=== PATIENT | female | born 1935 | race Caucasian/White ===

== ENCOUNTER 2016-12-18 13:35 | Emergency (ER) | payer MEDICARE, OTHER ==
[2016-12-18] MEDS ORDERED: Aspirin 81 MG Tab.Chew PO ONE (13:42)
[2016-12-18] MEDS ORDERED: Sodium Chloride 0.9% 10 ML Syringe FLUSH PRN (13:43)
--- NOTE | 2016-12-18 13:58 | EDM.PDOC ---
ED HPI GENERAL MEDICAL PROBLEM - General Chief Complaint: Chest Pain Stated Complaint: CHEST PAIN Time Seen by Provider: 12/18/16 13:40 Source of Information: Reports: Patient, Family, RN, RN Notes Reviewed History Limitations: Reports: No Limitations - History of Present Illness INITIAL COMMENTS - FREE TEXT/NARRATIVE: Patient presents to the emergency room at [facility] complaining of substernal chest pain. The patient states the pain is centered around the xiphoid process. The patient states the pain began one hour ago after she ate a very large meal. The patient denies any shortness of breath. No diaphoresis. No radiation of the pain. The patient states her only cardiac history is atrial fibrillation in the past. The patient denies any focal neurological deficits. The patient denies any dizziness, no headache. The patient denies any nausea or vomiting. Patient denies any back pain. The patient is not sure if her pain was caused from indigestion versus true cardiac pain. Onset: Today Onset Date: 12/18/16 Onset Time: 12:30 Duration: Waxing/Waning Location: Reports: Chest Quality: Reports: Burning, Pressure Severity: Mild Treatments METERMAN: Reports: Other (see below) (none) Chest Pain Pain Score (Numeric/FACES): 7 - Related Data Allergies Allergy/AdvReac Type Severity Reaction Status Date / Time soy Allergy Nausea Verified 07/09/14 16:35 Home Meds: Home Meds Levothyroxine Sodium [Levothyroxine Sodium] 1 caplet PO DAILY 07/09/14 [History] Social & Family History - Tobacco Use Smoking Status *Q: Never Smoker - Alcohol Use Days Per Week of Alcohol Use: 0 - Recreational Drug Use Recreational Drug Use: No ED ROS GENERAL - Review of Systems Review Of Systems: See Below Constitutional: Denies: Fever, Chills, Weakness Respiratory: Denies: Shortness of Breath, Cough Cardiovascular: Reports: Chest Pain. Denies: Dyspnea on Exertion, Lightheadedness, Palpitations ED EXAM, GENERAL - Physical Exam Exam: See Below Exam Limited By: No Limitations General Appearance: Alert, No Apparent Distress Respiratory/Chest: No Respiratory Distress, Lungs Clear, Normal Breath Sounds Cardiovascular: Normal Peripheral Pulses, No Edema, Bradycardia, Systolic Murmur Peripheral Pulses: 2+: Radial (L), Radial (R) GI/Abdominal: Normal Bowel Sounds, Soft, Non-Tender Extremities: Normal Inspection Neurological: Alert, Oriented Skin Exam: Warm, Dry, Intact, Normal Color, No Rash EKG INTERPRETATION EKG Date: 12/18/16 Time: 13:36 Rhythm: NSR Rate (beats/min): 55 [place]: normal P-wave: present QRS: normal ST-T: normal QT: normal LA/PQ Interval: 0.21 Comparison: NA - no prior EKG EKG Interpretation Comments: 1. Sinus Bradycardia with 1st degree AVB 2. Nonspecific ST & T-wave abnormality Course - Vital Signs Last Recorded V/S: Last Vital Signs Temp 35.9 C 12/18/16 13:35 Pulse 50 L 12/18/16 13:59 Resp 16 12/18/16 13:59 BP 151/58 H 12/18/16 13:59 Pulse Ox 93 L 12/18/16 13:59 - Orders/Labs/Meds Orders: Active Orders 24 hr Category Date Time Status EKG 12 Lead [EKG Documentation Completion] [RC] STAT Care 12/18/16 13:40 Active Chest 2V [CR] Stat Exams 12/18/16 13:43 Taken Sodium Chloride 0.9% [Saline Flush] Med 12/18/16 13:43 Active 10 ml FLUSH ASDIRECTED PRN Peripheral IV Insertion Adult [OM.PC] Routine Oth 12/18/16 13:43 Ordered Medication Orders Sodium Chloride (Saline Flush) 10 ml FLUSH ASDIRECTED PRN PRN Reason: Keep Vein Open Labs: Laboratory Tests 12/18/16 12/18/16 12/18/16 Range/Units 13:50 13:50 14:10 WBC 7.0 (4.0-10.0) x10^3/uL RBC 4.10 (4.00-5.50) x10^6/uL Hgb 12.8 (12.0-16.0) g/dL Hct 38.0 (33.0-47.0) % MCV 92.7 (78.0-93.0) fL MCH 31.2 (26.0-32.0) pg MCHC 33.7 (32.0-36.0) g/dL RDW Coeff of Dione 12.8 (10.0-15.0) % Plt Count 262 (130-400) x10^3/uL Neut % (Auto) 67.0 (50.0-80.0) % Lymph % (Auto) 24.0 L (25.0-50.0) % [place] % (Auto) 7.3 (2.0-11.0) % Eos % (Auto) 1.3 (0.0-4.0) % Baso % (Auto) 0.4 (0.2-1.2) % Sodium 140 (136-145) mmol/L Potassium 4.1 (3.5-5.1) mmol/L Chloride 104 (98-107) mmol/L Carbon Dioxide 28 (21-32) mmol/L BUN 11 (7-18) mg/dL Creatinine 1.0 (0.55-1.02) mg/dL Est Cr Clr Drug Dosing 32.23 mL/min Estimated GFR (MDRD) 53 Glucose 194 H (74-106) mg/dL Calcium 8.5 (8.5-10.1) mg/dL Corrected Calcium 8.82 (8.5-10.1) mg/dL Total Bilirubin 0.5 (0.2-1.0) mg/dL AST 22 (15-37) U/L ALT 26 (14-59) U/L Alkaline Phosphatase 60 (46-116) U/L Creatine Kinase 151 (26-192) U/L Creatine Kinase Index 1.6 (0.0-4.0) % CK-MB (CK-2) 2.4 (0.0-3.6) ng/mL POC Troponin I 0.00 (0.00-0.08) ng/mL Total Protein 6.7 (6.4-8.2) g/dL Albumin 3.6 (3.4-5.0) g/dL Globulin 3.1 Albumin/Globulin Ratio 1.16 Meds: Medications Generic Name Dose Route Start Last Admin Trade Name Freq PRN Reason Stop Dose Admin Sodium Chloride 10 ml 12/18/16 13:43 Saline Flush FLUSH ASDIRECTED PRN Keep Vein Open Discontinued Medications Generic Name Dose Route Start Last Admin Trade Name Freq PRN Reason Stop Dose Admin Aspirin 324 mg 12/18/16 13:42 12/18/16 13:42 Aspirin PO 12/18/16 13:43 324 mg ONETIME ONE Administration - Radiology Interpretation Free Text/Narrative:: CXR: No acute cardiopulmonary process See scanned document in EMR Departure - Departure Time of Disposition: 14:48 Disposition: Home, Self-Care 01 Condition: good Clinical Impression: Acid reflux Qualifiers: Esophagitis presence: with esophagitis Qualified Code(s): K21.0 - Gastro- esophageal reflux disease with esophagitis Instructions: Nonspecific Chest Pain, [id number], Indigestion Referrals: Susan Ford MD [Primary Care Provider] - Forms: ED Department Discharge Care Plan Goals: 1. Stay well hydrated and rest 2. May try over the counter acid reflux medications if symptoms persist 3. All heart testing was normal 4. See your Primary as symptoms warrant - Problem List Review Problem List Initiated/Reviewed/Updated: Yes - My Orders Last 24 Hours: My Active Orders 12/18/16 13:40 EKG 12 Lead [EKG Documentation Completion] [RC] STAT 12/18/16 13:43 Chest 2V [CR] Stat Sodium Chloride 0.9% [Saline Flush] 10 ml FLUSH ASDIRECTED PRN Peripheral IV Insertion Adult [OM.PC] Routine - Assessment/Plan Last 24 Hours: My Active Orders 12/18/16 13:40 EKG 12 Lead [EKG Documentation Completion] [RC] STAT 12/18/16 13:43 Chest 2V [CR] Stat Sodium Chloride 0.9% [Saline Flush] 10 ml FLUSH ASDIRECTED PRN Peripheral IV Insertion Adult [OM.PC] Routine
[2016-12-18 14:58] VITALS: BP 145/78
== END 2016-12-18 14:58 | disposition home or self-care (01) ==
LOC: VM.ED 13:35
DX: K21.0 Gastro-esophageal reflux disease with esophagitis (principal); Z91.018 Allergy to other foods; Z79.899 Other long term (current) drug therapy
CPT/HCPCS: 36415; 71020; 80053; 82550; 82553; 84484; 85025; 93005; 99285; A9270; 99283-GF

== ENCOUNTER 2017-08-24 10:46 | Emergency (ER) | payer MEDICARE, OTHER ==
[2017-08-24 11:28] VITALS: BP 165/64
--- NOTE | 2017-08-25 02:09 | EDM.PDOC ---
ED HPI GENERAL MEDICAL PROBLEM - General Chief Complaint: Gastrointestinal Problem Stated Complaint: TROUBLES PASSING BOWEL Time Seen by Provider: 08/24/17 10:46 Source of Information: Reports: Patient History Limitations: Reports: No Limitations - History of Present Illness INITIAL COMMENTS - FREE TEXT/NARRATIVE: Pt. complains of inablity to have a bowel movement. Pt. states that her last BM was approx. 72 hours ago. Pt. states that she is passing gas and can feel her bowels moving. She denies any fever or chills. No blood in her stools. Onset: Today Duration: Getting Worse Location: Reports: Abdomen Severity: Moderate - Related Data Allergies Allergy/AdvReac Type Severity Reaction Status Date / Time soy Allergy Nausea Verified 08/24/17 11:00 Home Meds: Home Meds Levothyroxine Sodium [Levothyroxine Sodium] 1 caplet PO DAILY 07/09/14 [History] Past Medical History HEENT History: Reports: Cataract Cardiovascular History: Reports: Afib Other Cardiovascular History: hx of afib Gastrointestinal History: Reports: Chronic Constipation Musculoskeletal History: Reports: RA Neurological History: Reports: Concussion Other Psychiatric History: forgetful @ times Endocrine/Metabolic History: Reports: Diabetes, Type II, Hypothyroidism - Past Surgical History GI Surgical History: Reports: Appendectomy, Cholecystectomy, Colonoscopy Social & Family History - Family History Family Medical History: Noncontributory - Tobacco Use Smoking Status *Q: Never Smoker Second Hand Smoke Exposure: No - Caffeine Use Caffeine Use: Reports: Coffee, Soda - Alcohol Use Days Per Week of Alcohol Use: 0 - Recreational Drug Use Recreational Drug Use: No ED ROS GENERAL - Review of Systems Review Of Systems: See Below Constitutional: Reports: No Symptoms HEENT: Reports: No Symptoms Respiratory: Reports: No Symptoms Cardiovascular: Reports: No Symptoms Endocrine: Reports: No Symptoms GI/Abdominal: Reports: Abdominal Pain, Constipation (No BM for 3 days) : Reports: No Symptoms Musculoskeletal: Reports: No Symptoms Skin: Reports: No Symptoms Neurological: Reports: No Symptoms Psychiatric: Reports: No Symptoms Hematologic/Lymphatic: Reports: No Symptoms Immunologic: Reports: No Symptoms ED EXAM, GI/ABD - Physical Exam Exam: See Below Exam Limited By: No Limitations General Appearance: Alert, WD/WN, No Apparent Distress Eyes: Bilateral: Normal Appearance, EOMI Throat/Mouth: Normal Inspection, Normal Lips, Normal Teeth, Normal Gums, Normal Oropharynx, Normal Voice, No Airway Compromise Respiratory/Chest: No Respiratory Distress, Lungs Clear, Normal Breath Sounds, No Accessory Muscle Use, Chest Non-Tender Cardiovascular: Normal Peripheral Pulses, Regular Rate, Rhythm, No Edema, No Gallop, No JVD, No Murmur, No Rub GI/Abdominal Exam: Normal Bowel Sounds, Soft, Non-Tender, No Organomegaly, No Distention, No Abnormal Bruit, No Mass, Pelvis Stable Back Exam: Normal Inspection, Full Range of Motion, NT Extremities: Normal Inspection, Normal Range of Motion, Non-Tender, Normal Capillary Refill, No Pedal Edema Neurological: Alert, Oriented, CN II-XII Intact, Normal Cognition, Normal Gait, Normal Reflexes, No Motor/Sensory Deficits Course - Vital Signs Last Recorded V/S: Last Vital Signs Temp 35.6 C 08/24/17 10:50 Pulse 66 08/24/17 10:50 Resp 18 08/24/17 10:50 BP 165/64 H 08/24/17 11:10 Pulse Ox 97 08/24/17 10:50 - Orders/Labs/Meds Orders: Active Orders 24 hr Category Date Time Status Enema [RC] ASDIRECTED Care 08/24/17 10:55 Active - Re-Assessments/Exams Free Text/Narrative Re-Assessment/Exam: 08/25/17 02:10 Pt. was given a Fleets enema with large result. She stated that she feel much improved after having a BM. Departure - Departure Time of Disposition: 12:02 Disposition: Home, Self-Care 01 Condition: Good Clinical Impression: Constipation - Discharge Information Instructions: Constipation, Adult Referrals: Susan Ford MD [Primary Care Provider] - Forms: ED Department Discharge Additional Instructions: Increase intake of water. Start miralax once daily to help loosen stool. Return to ER of follow-up in clinic if abdominal pain. - My Orders Last 24 Hours: My Active Orders 08/24/17 10:55 Enema [RC] ASDIRECTED - Assessment/Plan Last 24 Hours: My Active Orders 08/24/17 10:55 Enema [RC] ASDIRECTED Assessment:: acute constipation Plan: Follow-up in clinic in 7-10 days Start mirilax increase intake of water Return to ER if not gradually improving
== END 2017-08-24 12:02 | disposition home or self-care (01) ==
LOC: VM.ED 10:46
DX: K59.00 Constipation, unspecified (principal); E11.9 Type 2 diabetes mellitus without complications; E03.9 Hypothyroidism, unspecified; I48.91 Unspecified atrial fibrillation; Z91.02 Food additives allergy status
CPT/HCPCS: 99283; 99283-GF

== ENCOUNTER 2017-09-05 18:22 | Observation (INO) | payer MEDICARE, OTHER ==
--- NOTE | 2017-09-05 18:41 | EDM.PDOC ---
ED HPI GENERAL MEDICAL PROBLEM - General Source of Information: Reports: Patient, Family, RN, RN Notes Reviewed History Limitations: Reports: No Limitations - History of Present Illness Onset: Today Onset Date: 09/05/17 Left Upper Back Pain Score (Numeric/FACES): 6 <Sourav Prado - Last Filed: 09/05/17 18:55> <Maikol Israel - Last Filed: 09/05/17 22:32> - General Chief Complaint: Head Injury Stated Complaint: Fall; Head injury w/loc; upper back pain Time Seen by Provider: 09/05/17 18:29 - History of Present Illness INITIAL COMMENTS - FREE TEXT/NARRATIVE: Patient presents to the ED at [facility] after she fell at home down a couple of steps, hitting the left side of her head and left upper back. Patient' s thinks the patient may have LOC and confused about 15-20 minutes. No previous head injury or trauma. Patient has a 4cm abrasion to the posterior left scalp. No other obvious injuries or deformities. Patient is not sure how or why she fell. She denies any dizziness or chest pain. No SOB. No focal neurological deficits. Patient has a history of frequent falls at home. The patient was recently seen by her primary care provider on August 18, 2017. At that time a Mini-Mental examination was completed and she scored 27/30. The patient had a MOCA test June 2017 in which she actually scored worse than the Mini-Mental with a score of 18/30. The patient was also recently advised not to drive anymore due to her declining memory. The patient is scheduled to see neuropsychology September 2017 for cognitive testing. The patient's last MRI was February 2018 which only showed normal atrophy with no acute findings. (Sourav Prado) - Related Data Allergies Allergy/AdvReac Type Severity Reaction Status Date / Time soy Allergy Nausea Verified 09/05/17 18:36 Home Meds: Home Meds Levothyroxine Sodium [Levothyroxine Sodium] 1 caplet PO DAILY 07/09/14 [History] Advanced Joint Relief 1 tab PO DAILY 09/05/17 [History] Ascorbic Acid [Vitamin C] 1,000 mg PO DAILY 09/05/17 [History] Aspirin [Halfprin] 81 mg PO DAILY 09/05/17 [History] Calcium Carb/D3/Magnesium/Zinc [Pzwhmia-Abd-Tdbn-Vit D] 1 each PO DAILY [History] Cholecalciferol (Vitamin D3) [Vitamin D3] 600 unit PO DAILY 09/05/17 [History] Co Enzyme 1 tab PO DAILY 09/05/17 [History] Coconut Oil 1,000 mg PO BID 09/05/17 [History] Multivitamin with Minerals [Multiple Vitamin] 1 each PO DAILY 09/05/17 [History] Similasan 1 drop EYEBOTH ASDIRECTED PRN 09/05/17 [History] Triamcinolone Acetonide [Triamcinolone Acetonide 0.5%] 15 gm .XX BID PRN [History] Zinc 50 mg PO DAILY 09/05/17 [History] Past Medical History HEENT History: Reports: Cataract Cardiovascular History: Reports: Afib Other Cardiovascular History: hx of afib Gastrointestinal History: Reports: Chronic Constipation Musculoskeletal History: Reports: RA Neurological History: Reports: Concussion Other Psychiatric History: forgetful @ times Endocrine/Metabolic History: Reports: Diabetes, Type II, Hypothyroidism - Past Surgical History GI Surgical History: Reports: Appendectomy, Cholecystectomy, Colonoscopy <Sourav Prado Filed: 09/05/17 18:55> Social & Family History - Family History Family Medical History: Noncontributory - Tobacco Use Smoking Status *Q: Never Smoker Second Hand Smoke Exposure: No - Caffeine Use Caffeine Use: Reports: Coffee, Soda - Alcohol Use Days Per Week of Alcohol Use: 0 - Recreational Drug Use Recreational Drug Use: No <Sourav Prado Jaya Filed: 09/05/17 18:55> ED ROS GENERAL - Review of Systems Review Of Systems: See Below Constitutional: Denies: Fever, Chills, Weakness Respiratory: Denies: Shortness of Breath, Cough Cardiovascular: Denies: Chest Pain, Palpitations Musculoskeletal: Reports: Back Pain Skin: Reports: Wound (abrasion to posterior left scalp) Neurological: Denies: Dizziness, Headache <Sourav Prado Filed: 09/05/17 18:55> ED EXAM, HEAD INJURY - Physical Exam Exam: See Below Exam Limited By: No Limitations General Appearance: Alert, No Apparent Distress Head: Normocephalic, Scalp Abrasions (Left posterior scalp) Nexus Criteria: No: Posterior, Midline Cervical Tenderness, Altered Level of Consciousness, Focal Neurological Deficit, Painful Distraction Injuries Eyes: Bilateral Eye: Normal Inspection, PERRL Neck: Non-Tender, Full Range of Motion, Normal Alignment, Normal Inspection Respiratory: No Respiratory Distress, Lungs Clear, Normal Breath Sounds Cardiovascular: Normal Peripheral Pulses, Regular Rate, Rhythm Back Exam: Normal Inspection, Muscle Spasm (below left scapula, left posterior thoracic back) Neurologic: Alert, Oriented x 3 Skin: Normal Color, Warm/Dry - Nani Coma Score Best Eye Response (Nani): (4) Open Spontaneously Best Verbal Response (Nani): (5) Oriented Best Motor Response ([place]): (6) Obeys Commands [place] Total: 15 <Sourav Prado - Last Filed: 09/05/17 18:55> - Vital Signs Last Recorded V/S: Last Vital Signs Temp 36.8 C 09/05/17 22:00 Pulse 116 H 09/05/17 22:00 Resp 20 09/05/17 22:00 BP 201/81 H 09/05/17 22:00 Pulse Ox 97 09/05/17 22:00 - Orders/Labs/Meds Orders: Active Orders 24 hr Category Date Time Status Chest wo Cont [CT] Stat Exams 09/05/17 18:35 Taken Head wo Cont [CT] Stat Exams 09/05/17 18:33 Taken Medication Orders Ascorbic Acid (Vitamin C) 1,000 mg PO DAILY MARCE Levothyroxine Sodium (Levothyroxine) 125 mcg PO DAILY MARCE Non-Formulary Medication (Calcium Carb/D3/Magnesium/Zinc [Rywmwxg-Enw-Xwtt-Vit D ]) 1 each PO DAILY MARCE Non-Formulary Medication (Multivitamin With Minerals [Multiple Vitamin]) 1 each PO DAILY MARCE Non-Formulary Medication (Zinc [Zinc]) 50 mg PO DAILY MARCE Sodium Chloride (Saline Flush) 10 ml FLUSH ASDIRECTED PRN PRN Reason: Keep Vein Open Meds: Medications Generic Name Dose Route Start Last Admin Trade Name Freq PRN Reason Stop Dose Admin Ascorbic Acid 1,000 mg 09/06/17 08:00 Vitamin C PO DAILY MARCE Levothyroxine Sodium 125 mcg 09/06/17 08:00 Levothyroxine PO DAILY MARCE Non-Formulary Medication 1 each 09/06/17 08:00 Calcium Carb/D3/Magnesium/Zinc [Xqpqjhn-Alg-Hxcs-Vit D] PO DAILY MARCE Non-Formulary Medication 1 each 09/06/17 08:00 Multivitamin With Minerals [Multiple Vitamin] PO DAILY MARCE Non-Formulary Medication 50 mg 09/06/17 08:00 Zinc [Zinc] PO DAILY [facility] Sodium Chloride 10 ml 09/05/17 19:35 Saline Flush FLUSH ASDIRECTED PRN Keep Vein Open Discontinued Medications Generic Name Dose Route Start Last Admin Trade Name Freq PRN Reason Stop Dose Admin Hydrochlorothiazide 12.5 mg 09/05/17 21:46 09/05/17 21:58 Hydrochlorothiazide PO 09/05/17 21:47 12.5 mg ONETIME ONE Administration Lisinopril 10 mg 09/05/17 21:44 09/05/17 21:58 Prinivil PO 09/05/17 21:45 10 mg ONETIME ONE Administration Departure <Sourav Prado - Last Filed: 09/05/17 18:55> - Departure Time of Disposition: 20:00 <Maikol Israel - Last Filed: 09/05/17 22:32> - Departure Disposition: Refer to Observation Clinical Impression: Concussion injury of brain - Problem List Review Problem List Initiated/Reviewed/Updated: Yes <Sourav Prado - Last Filed: 09/05/17 18:55>
[2017-09-05] MEDS ORDERED: Sodium Chloride 0.9% 10 ML Syringe FLUSH PRN (19:35)
[2017-09-05] MEDS ORDERED: Lisinopril 10 MG Tab PO ONE (21:44)
[2017-09-05] MEDS ORDERED: Hydrochlorothiazide 12.5 MG Cap PO ONE (21:46)
--- NOTE | 2017-09-05 22:27 | EDM.PDOC ---
ED HPI GENERAL MEDICAL PROBLEM - General Chief Complaint: Head Injury Stated Complaint: Fall; Head injury w/loc; upper back pain Time Seen by Provider: 09/05/17 18:29 Source of Information: Reports: Patient, Family, RN, RN Notes Reviewed History Limitations: Reports: No Limitations - History of Present Illness INITIAL COMMENTS - FREE TEXT/NARRATIVE: Patient presents to the ED at [facility] after she fell at home down a couple of steps, hitting the left side of her head and left upper back. Patient' s thinks the patient may have LOC and confused about 15-20 minutes. No previous head injury or trauma. Patient has a 4cm abrasion to the posterior left scalp. No other obvious injuries or deformities. Patient is not sure how or why she fell. She denies any dizziness or chest pain. No SOB. No focal neurological deficits. Patient has a history of frequent falls at home. The patient was recently seen by her primary care provider on August 18, 2017. At that time a Mini-Mental examination was completed and she scored 27/30. The patient had a MOCA test June 2017 in which she actually scored worse than the Mini-Mental with a score of 18/30. The patient was also recently advised not to drive anymore due to her declining memory. The patient is scheduled to see neuropsychology September 2017 for cognitive testing. The patient's last MRI was February 2018 which only showed normal atrophy with no acute findings. Onset: Today Onset Date: 09/05/17 Left Upper Back Pain Score (Numeric/FACES): 6 - Related Data Allergies Allergy/AdvReac Type Severity Reaction Status Date / Time soy Allergy Nausea Verified 09/05/17 18:36 Home Meds: Home Meds Levothyroxine Sodium [Levothyroxine Sodium] 1 caplet PO DAILY 07/09/14 [History] Advanced Joint Relief 1 tab PO DAILY 09/05/17 [History] Ascorbic Acid [Vitamin C] 1,000 mg PO DAILY 09/05/17 [History] Aspirin [Halfprin] 81 mg PO DAILY 09/05/17 [History] Calcium Carb/D3/Magnesium/Zinc [Ojecidn-Zns-Jsng-Vit D] 1 each PO DAILY [History] Cholecalciferol (Vitamin D3) [Vitamin D3] 600 unit PO DAILY 09/05/17 [History] Co Enzyme 1 tab PO DAILY 09/05/17 [History] Coconut Oil 1,000 mg PO BID 09/05/17 [History] Multivitamin with Minerals [Multiple Vitamin] 1 each PO DAILY 09/05/17 [History] Similasan 1 drop EYEBOTH ASDIRECTED PRN 09/05/17 [History] Triamcinolone Acetonide [Triamcinolone Acetonide 0.5%] 15 gm .XX BID PRN [History] Zinc 50 mg PO DAILY 09/05/17 [History] Past Medical History HEENT History: Reports: Cataract Cardiovascular History: Reports: Afib Other Cardiovascular History: hx of afib Respiratory History: Reports: None Gastrointestinal History: Reports: Chronic Constipation Genitourinary History: Reports: Urinary Incontinence SERICULTURIST History: Reports: None Musculoskeletal History: Reports: RA Neurological History: Reports: Concussion Other Psychiatric History: forgetful @ times Endocrine/Metabolic History: Reports: Diabetes, Type II, Hypothyroidism - Infectious Disease History Infectious Disease History: Reports: Chicken Pox, Measles - Past Surgical History HEENT Surgical History: Reports: Other (See Below) Other HEENT Surgeries/Procedures: tonsillectomy GI Surgical History: Reports: Appendectomy, Cholecystectomy, Colonoscopy Social & Family History - Family History Family Medical History: Noncontributory - Tobacco Use Smoking Status *Q: Never Smoker Second Hand Smoke Exposure: No - Caffeine Use Caffeine Use: Reports: Coffee, Tea - Alcohol Use Days Per Week of Alcohol Use: 0 - Recreational Drug Use Recreational Drug Use: No ED ROS GENERAL - Review of Systems Review Of Systems: See Below Constitutional: Reports: No Symptoms HEENT: Reports: No Symptoms, Other (scalp abrasion/contusion) Respiratory: Reports: No Symptoms Cardiovascular: Reports: No Symptoms Endocrine: Reports: No Symptoms GI/Abdominal: Reports: No Symptoms : Reports: No Symptoms Musculoskeletal: Reports: No Symptoms Skin: Reports: No Symptoms Neurological: Reports: No Symptoms Psychiatric: Reports: No Symptoms Hematologic/Lymphatic: Reports: No Symptoms Immunologic: Reports: No Symptoms ED EXAM, GENERAL - Physical Exam Exam: See Below Free Text/Narrative:: Patient presents to the ED at [facility] after she fell at home down a couple of steps, hitting the left side of her head and left upper back. Patient' s thinks the patient may have LOC and confused about 15-20 minutes. No previous head injury or trauma. Patient has a 4cm abrasion to the posterior left scalp. No other obvious injuries or deformities. Patient is not sure how or why she fell. She denies any dizziness or chest pain. No SOB. No focal neurological deficits. Patient has a history of frequent falls at home. The patient was recently seen by her primary care provider on August 18, 2017. At that time a Mini-Mental examination was completed and she scored 27/30. The patient had a MOCA test June 2017 in which she actually scored worse than the Mini-Mental with a score of 18/30. The patient was also recently advised not to drive anymore due to her declining memory. The patient is scheduled to see neuropsychology September 2017 for cognitive testing. The patient's last MRI was February 2018 which only showed normal atrophy with no acute findings. Exam Limited By: No Limitations General Appearance: Alert, No Apparent Distress Eye Exam: Bilateral Eye: EOMI, Normal Fundi, Normal Inspection, PERRL Ears: Normal External Exam, Normal Canal, Hearing Grossly Normal, Normal TMs Ear Exam: Bilateral Ear: Auricle Normal, Canal Normal, TM normal Nose: Normal Inspection, Normal Mucosa, No Blood, Nasal Deformity, Nasal Swelling Throat/Mouth: Normal Inspection, Normal Lips, Normal Teeth, Normal Gums, Normal Oropharynx, Normal Voice, No Airway Compromise Head: Other (scalp contusion/abrasion to L parietal area. No deformity.) Neck: Normal Inspection, Supple, Non-Tender, Full Range of Motion Respiratory/Chest: No Respiratory Distress, Lungs Clear, Normal Breath Sounds, No Accessory Muscle Use, Chest Non-Tender Cardiovascular: Normal Peripheral Pulses, Regular Rate, Rhythm Peripheral Pulses: 2+: Radial (L), Radial (R) GI/Abdominal: Normal Bowel Sounds, Soft, Non-Tender, No Organomegaly, No Distention (Female) Exam: Deferred Rectal (Female) Exam: Deferred Back Exam: Normal Inspection, Muscle Spasm (below left scapula, left posterior thoracic back) Extremities: Normal Inspection, Normal Range of Motion, Non-Tender, Normal Capillary Refill, No Pedal Edema Neurological: Alert, Oriented, CN II-XII Intact, Normal Gait, Normal Reflexes, No Motor/Sensory Deficits, Memory Loss Recent Events (History of dementia) Psychiatric: Normal Affect, Normal Mood Skin Exam: Warm, Dry, Intact, Normal Color, No Rash Lymphatic: No Adenopathy Course - Vital Signs Last Recorded V/S: Last Vital Signs Temp 36.8 C 09/05/17 22:00 Pulse 116 H 09/05/17 22:00 Resp 20 09/05/17 22:00 BP 201/81 H 09/05/17 22:00 Pulse Ox 97 09/05/17 22:00 - Orders/Labs/Meds Orders: Active Orders 24 hr Category Date Time Status Chest wo Cont [CT] Stat Exams 09/05/17 18:35 Taken Head wo Cont [CT] Stat Exams 09/05/17 18:33 Taken Medication Orders Levothyroxine Sodium (Levothyroxine) mcg PO DAILY [facility] Non-Formulary Medication (Ascorbic Acid [Vitamin C]) 1,000 mg PO DAILY [facility] Non-Formulary Medication (Calcium Carb/D3/Magnesium/Zinc [Mtqlbuf-Wuf-Nscf-Vit D ]) 1 each PO DAILY [facility] Non-Formulary Medication (Multivitamin With Minerals [Multiple Vitamin]) 1 each PO DAILY [facility] Non-Formulary Medication (Zinc [Zinc]) 50 mg PO DAILY [facility] Sodium Chloride (Saline Flush) 10 ml FLUSH ASDIRECTED PRN PRN Reason: Keep Vein Open Meds: Medications Generic Name Dose Route Start Last Admin Trade Name Freq PRN Reason Stop Dose Admin Levothyroxine Sodium mcg 09/06/17 08:00 Levothyroxine PO DAILY AMRCE Non-Formulary Medication 1,000 mg 09/06/17 08:00 Ascorbic Acid [Vitamin C] PO DAILY [facility] Non-Formulary Medication 1 each 09/06/17 08:00 Calcium Carb/D3/Magnesium/Zinc [Qvqokuo-Txj-Ijto-Vit D] PO DAILY [facility] Non-Formulary Medication 1 each 09/06/17 08:00 Multivitamin With Minerals [Multiple Vitamin] PO DAILY [facility] Non-Formulary Medication 50 mg 09/06/17 08:00 Zinc [Zinc] PO DAILY MARCE Sodium Chloride 10 ml 09/05/17 19:35 Saline Flush FLUSH ASDIRECTED PRN Keep Vein Open Discontinued Medications Generic Name Dose Route Start Last Admin Trade Name Freq PRN Reason Stop Dose Admin Hydrochlorothiazide 12.5 mg 09/05/17 21:46 09/05/17 21:58 Hydrochlorothiazide PO 09/05/17 21:47 12.5 mg ONETIME ONE Administration Lisinopril 10 mg 09/05/17 21:44 09/05/17 21:58 Prinivil PO 09/05/17 21:45 10 mg ONETIME ONE Administration - Radiology Interpretation CT Results Date: 09/05/17 CT Results Time: 22:23 Departure - Departure Time of Disposition: 20:00 Disposition: Refer to Observation Condition: Good Clinical Impression: Concussion injury of brain - Discharge Information - Assessment/Plan Assessment:: Fell, struck head. Possible meningioma vs. small bleed. Plan: Admit observation. Code level 1. Vitals Q2 hours. Neuro checks. SCDs. Will repeat head CT in AM.
[2017-09-06] MEDS ORDERED: LORazepam 1 MG Tab PO ONE ×2 (03:01→09:22)
[2017-09-06] MEDS ORDERED: Levothyroxine 125 MCG Tab PO SCH (07:00)
[2017-09-06] MEDS ORDERED: Multivitamins with Iron/Calcium/Folic Acid/Minerals Tab PO SCH (08:00)
[2017-09-06] MEDS ORDERED: Calcium Carbonate/Vitamin D3 1250 MG-200 Unit Tab PO SCH (08:00)
[2017-09-06] MEDS ORDERED: Ascorbic Acid 500 MG Tab PO SCH (08:00)
[2017-09-06] MEDS ORDERED: Zinc (Zinc Gluconate) 50 MG Tab PO SCH (08:00)
[2017-09-06 09:59] VITALS: BP 159/60
--- NOTE | 2017-09-06 10:25 | PCM.DCSUM1 ---
Discharge Summary - Hospital Course Free Text/Narrative:: Admitted last evening with a closed head injury and evidence of either small subdural hematoma vs. meningioma on CT. Pt. was admitted and CT was repeated this AM. There was not change in the size of the hyperdensity, suggesting physiologic vs. pathologic lesion. Pt. was monitored overnight. No seizure activity or other focal neuro abnormality. Pt. has a history of dementia and was somewhat confused and agitated last night. She had been started in Lisinopril HCTZ but remained hypertensive, particularly if she was agitated. Her BP would decrease into the normal range after she received the ativan. Decision was made to discharge the pt. and have her followed by home health this week. Will arrange follow-up with primary care in the next 10-14 days. - Discharge Data Discharge Date: 09/06/17 Discharge Disposition: Home, Self-Care 01 Condition: Good - Discharge Diagnosis/Problem(s) (1) Hypertension SNOMED Code(s): 05570362 ICD Code: I10 - ESSENTIAL (PRIMARY) HYPERTENSION Status: Acute Current Visit: Yes (2) Concussion injury of brain SNOMED Code(s): 000984564 ICD Code: S06.0X9A - CONCUSSION W LOSS OF CONSCIOUSNESS OF UNSP DURATION, INIT Status: Acute Current Visit: Yes - Patient Instructions Diet: Usual Diet as Tolerated Driving: Do Not Drive - Discharge Plan Home Medications: Home Meds Levothyroxine Sodium 1 caplet PO DAILY 07/09/14 [History] Advanced Joint Relief 1 tab PO DAILY 09/05/17 [History] Ascorbic Acid [Vitamin C] 1,000 mg PO DAILY 09/05/17 [History] Aspirin [Halfprin] 81 mg PO DAILY 09/05/17 [History] Calcium Carb/D3/Magnesium/Zinc [Tuirmzd-Ibc-Ddjw-Vit D] 1 each PO DAILY [History] Cholecalciferol (Vitamin D3) [Vitamin D3] 600 unit PO DAILY 09/05/17 [History] Co Enzyme 1 tab PO DAILY 09/05/17 [History] Coconut Oil 1,000 mg PO BID 09/05/17 [History] Multivitamin with Minerals [Multiple Vitamin] 1 each PO DAILY 09/05/17 [History] Similasan 1 drop EYEBOTH ASDIRECTED PRN 09/05/17 [History] Triamcinolone Acetonide [Triamcinolone Acetonide 0.5%] 15 gm .XX BID PRN [History] Zinc 50 mg PO DAILY 09/05/17 [History] Forms: ED Department Discharge Referrals: Susan Ford MD [Primary Care Provider] - - General Info Date of Service: 09/06/17 Functional Status: Reports: Pain Controlled - Review of Systems General: Reports: No Symptoms HEENT: Reports: Other (scalp contusion) Pulmonary: Reports: No Symptoms Cardiovascular: Reports: No Symptoms Gastrointestinal: Reports: No Symptoms Genitourinary: Reports: No Symptoms Musculoskeletal: Reports: No Symptoms Skin: Reports: No Symptoms Neurological: Reports: Confusion (history of dementia) Psychiatric: Reports: No Symptoms - Patient Data Vitals - Most Recent: Last Vital Signs Temp 36.8 C 09/06/17 05:44 Pulse 63 09/06/17 08:51 Resp 20 09/06/17 08:51 BP 159/60 H 09/06/17 10:00 Pulse Ox 98 09/06/17 08:51 Weight - Most Recent: 75.183 kg I&O - Last 24 hours: Intake & Output 09/05/17 09/06/17 09/06/17 22:59 06:59 14:59 Intake Total 180 Output Total 100 Balance -100 180 Lab Results - Last 24 hrs: Laboratory Results - last 24 hr 09/05/17 09/05/17 09/05/17 Range/Units 20:00 20:00 20:00 WBC 9.0 (4.0-10.0) x10^3/uL RBC 4.18 (4.00-5.50) x10^6/uL Hgb 13.5 (12.0-16.0) g/dL Hct 39.6 (33.0-47.0) % MCV 94.7 H (78.0-93.0) fL MCH 32.3 H (26.0-32.0) pg MCHC 34.1 (32.0-36.0) g/dL RDW Coeff of Dione 12.6 (10.0-15.0) % Plt Count 276 (130-400) x10^3/uL Neut % (Auto) 75.9 (50.0-80.0) % Lymph % (Auto) 14.9 L (25.0-50.0) % Gulf % (Auto) 6.8 (2.0-11.0) % Eos % (Auto) 2.1 (0.0-4.0) % Baso % (Auto) 0.3 (0.2-1.2) % PT 9.8 (9.8-11.8) SEC INR 0.9 L (2.0-3.5) Sodium 136 (136-145) mmol/L Potassium 4.6 (3.5-5.1) mmol/L Chloride 100 (98-107) mmol/L Carbon Dioxide 26 (21-32) mmol/L BUN 17 (7-18) mg/dL Creatinine 1.0 (0.55-1.02) mg/dL Est Cr Clr Drug Dosing 31.69 mL/min Estimated GFR (MDRD) 53 Glucose 130 H (74-106) mg/dL POC Glucose (74-106) mg/dL Calcium 8.3 L (8.5-10.1) mg/dL Corrected Calcium 8.62 (8.5-10.1) mg/dL Total Bilirubin 0.3 (0.2-1.0) mg/dL AST 19 (15-37) U/L ALT 21 (14-59) U/L Alkaline Phosphatase 79 (46-116) U/L Total Protein 7.2 (6.4-8.2) g/dL Albumin 3.6 (3.4-5.0) g/dL Globulin 3.6 Albumin/Globulin Ratio 1.00 09/05/17 09/06/17 Range/Units 21:41 06:22 WBC (4.0-10.0) x10^3/uL RBC (4.00-5.50) x10^6/uL Hgb (12.0-16.0) g/dL Hct (33.0-47.0) % MCV (78.0-93.0) fL MCH (26.0-32.0) pg MCHC (32.0-36.0) g/dL RDW Coeff of Dione (10.0-15.0) % Plt Count (130-400) x10^3/uL Neut % (Auto) (50.0-80.0) % Lymph % (Auto) (25.0-50.0) % Gulf % (Auto) (2.0-11.0) % Eos % (Auto) (0.0-4.0) % Baso % (Auto) (0.2-1.2) % PT (9.8-11.8) SEC INR (2.0-3.5) Sodium (136-145) mmol/L Potassium (3.5-5.1) mmol/L Chloride (98-107) mmol/L Carbon Dioxide (21-32) mmol/L BUN (7-18) mg/dL Creatinine (0.55-1.02) mg/dL Est Cr Clr Drug Dosing mL/min Estimated GFR (MDRD) Glucose (74-106) mg/dL POC Glucose 140 H 101 (74-106) mg/dL Calcium (8.5-10.1) mg/dL Corrected Calcium (8.5-10.1) mg/dL Total Bilirubin (0.2-1.0) mg/dL AST (15-37) U/L ALT (14-59) U/L Alkaline Phosphatase (46-116) U/L Total Protein (6.4-8.2) g/dL Albumin (3.4-5.0) g/dL Globulin Albumin/Globulin Ratio Med Orders - Current: Current Medications Ascorbic Acid (Vitamin C) 1,000 mg PO DAILY [facility] Last Admin: 09/06/17 08:21 Dose: 1,000 mg Calcium Carbonate (Calcium Carbonate/Vitamin D 1250 Mg-200 Unit) 1 tab PO DAILY [facility] Last Admin: 09/06/17 09:30 Dose: 1 tab Levothyroxine Sodium (Levothyroxine) 125 mcg PO DAILY@0700 [facility] Last Admin: 09/06/17 08:22 Dose: Not Given Multivitamins/Minerals (Thera M Plus) 1 tab PO DAILY [facility] Last Admin: 09/06/17 08:21 Dose: 1 tab Sodium Chloride (Saline Flush) 10 ml FLUSH ASDIRECTED PRN PRN Reason: Keep Vein Open Zinc Gluconate (Zinc) 50 mg PO DAILY [facility] Last Admin: 09/06/17 08:21 Dose: 50 mg Discontinued Medications Hydrochlorothiazide (Hydrochlorothiazide) 12.5 mg PO ONETIME ONE Stop: 09/05/17 21:47 Last Admin: 09/05/17 21:58 Dose: 12.5 mg Lisinopril (Prinivil) 10 mg PO ONETIME ONE Stop: 09/05/17 21:45 Last Admin: 09/05/17 21:58 Dose: 10 mg Lorazepam (Ativan) 1 mg PO ONETIME ONE Stop: 09/06/17 03:02 Last Admin: 09/06/17 03:20 Dose: 1 mg Lorazepam (Ativan) 1 mg PO ONETIME ONE Stop: 09/06/17 09:23 Last Admin: 09/06/17 09:30 Dose: 1 mg - Exam General: Reports: Alert, Oriented HEENT: Reports: Pupils Equal, Pupils Reactive, EOMI, Mucous Membr. Moist/Bauxite, Other (L parietal scalp contusion/abrasion) Neck: Reports: Supple Lungs: Reports: Clear to Auscultation, Normal Respiratory Effort Cardiovascular: Reports: Regular Rate, Regular Rhythm GI/Abdominal Exam: Normal Bowel Sounds, Soft, Non-Tender, No Organomegaly, No Distention, No Abnormal Bruit, No Mass, Pelvis Stable (Female) Exam: Deferred Rectal (Female) Exam: Deferred Back Exam: Reports: Normal Inspection, Full Range of Motion Extremities: Normal Inspection, Normal Range of Motion, Non-Tender, No Pedal Edema, Normal Capillary Refill Skin: Reports: Warm, Dry, Intact Neurological: Reports: No New Focal Deficit, Normal Gait, Normal Speech Psy/Mental Status: Reports: Alert, Normal Affect, Normal Mood *Q Meaningful Use (DIS) - VTE *Q VTE Criteria *Q: - Stroke *Q Stroke Criteria *Q: - AMI *Q AMI Criteria *Q:
== END 2017-09-06 11:00 | disposition home or self-care (01) ==
LOC: VM.ED 18:22 → VM.MS 19:33
PROVIDERS: ADMIT Physician Assistant; ATTEND Physician Assistant
DX: S06.0X1A Concussion with loss of consciousness of 30 minutes or less, initial encounter (principal); I10 Essential (primary) hypertension; I48.91 Unspecified atrial fibrillation; E11.9 Type 2 diabetes mellitus without complications; E03.9 Hypothyroidism, unspecified; H26.9 Unspecified cataract; Z91.018 Allergy to other foods; Z79.82 Long term (current) use of aspirin; Z79.899 Other long term (current) drug therapy; W10.9XXA Fall (on) (from) unspecified stairs and steps, initial encounter; Y92.009 Unspecified place in unspecified non-institutional (private) residence as the place of occurrence of the external cause
CPT/HCPCS: 70450; 71250; 80053; 82962; 85025; 85610; 99285; A9270; G0378; 99217; 99220

== ENCOUNTER 2017-12-25 22:05 | Emergency (ER) | payer MEDICARE, OTHER ==
[2017-12-25 22:25] VITALS: BP 127/54
[2017-12-25] MEDS ORDERED: Sodium Chloride 0.9% 10 ML Syringe FLUSH PRN (22:57)
[2017-12-25] MEDS ORDERED: Sodium Chloride 0.9% 1,000 ML IV ONE (22:57)
--- NOTE | 2017-12-25 23:16 | EDM.PDOC ---
ED HPI GENERAL MEDICAL PROBLEM - General Chief Complaint: General Stated Complaint: sweaty, confusion Time Seen by Provider: 12/25/17 22:08 Source of Information: Reports: Patient, Family History Limitations: Reports: No Limitations - History of Present Illness INITIAL COMMENTS - FREE TEXT/NARRATIVE: Patient presents to the emergency room this evening with complaints by her of diaphoresis and fever. She states when taking an oral temperature she was 101F. When she presents here she is afebrile, she has no complaints except for being tired. She has been recently diagnosed with Alzheimer's. Her provides most of the history. She does state she feels like she is had more urinary frequency with pain during urination. She denies chest pain, shortness of breath, abdominal pain, blood in her urine or stool, states she is having regular bowel and bladder patterns. She has had some incontinence issues over the last few days and does wear a pad. She is pleasantly confused. states he gave her some Tylenol earlier this evening around 6 PM. He also states that she was having some hallucinations. He does admit that she does hallucinate from time to time but that these were worse than usual. Limited to visual hallucinations. She denies any auditory hallucinations. Onset: Today, Sudden Location: Reports: Generalized Severity: Mild Improves with: Reports: Medication Associated Symptoms: Reports: Confusion - Related Data Allergies Allergy/AdvReac Type Severity Reaction Status Date / Time soy Allergy Nausea Verified 12/25/17 22:25 Home Meds: Home Meds Advanced Joint Relief 1 tab PO DAILY 09/05/17 [History] Ascorbic Acid [Vitamin C] 1,000 mg PO DAILY 09/05/17 [History] Aspirin [Halfprin] 81 mg PO DAILY 09/05/17 [History] Calcium Carb/D3/Magnesium/Zinc [Ikjwufs-Dtc-Mxis-Vit D] 1 each PO DAILY [History] Cholecalciferol (Vitamin D3) [Vitamin D3] 600 unit PO DAILY 09/05/17 [History] Co Enzyme 1 tab PO DAILY 09/05/17 [History] Coconut Oil 1,000 mg PO BID 09/05/17 [History] Multivitamin with Minerals [Multiple Vitamin] 1 each PO DAILY 09/05/17 [History] Similasan 1 drop EYEBOTH ASDIRECTED PRN 09/05/17 [History] Triamcinolone Acetonide [Triamcinolone Acetonide 0.5%] 15 gm .XX BID PRN [History] Zinc 50 mg PO DAILY 09/05/17 [History] Donepezil HCl 1 tab PO DAILY 12/25/17 [History] Donepezil [Aricept] 5 mg PO 12/25/17 [History] Levothyroxine Sodium [Synthroid] 1 tab PO DAILY 12/25/17 [History] Lisinopril/Hydrochlorothiazide [Lisinopril-Hctz 10-12.5 mg Tab] 1 tab PO DAILY 12/25/17 [History] Past Medical History HEENT History: Reports: Cataract Cardiovascular History: Reports: Afib Other Cardiovascular History: hx of afib Respiratory History: Reports: None Gastrointestinal History: Reports: Chronic Constipation Genitourinary History: Reports: Urinary Incontinence 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: Reports: None Musculoskeletal History: Reports: RA Neurological History: Reports: Concussion Other Psychiatric History: forgetful @ times Endocrine/Metabolic History: Reports: Diabetes, Type II, Hypothyroidism - Infectious Disease History Infectious Disease History: Reports: Chicken Pox, Measles - Past Surgical History HEENT Surgical History: Reports: Other (See Below) Other HEENT Surgeries/Procedures: tonsillectomy GI Surgical History: Reports: Appendectomy, Cholecystectomy, Colonoscopy Social & Family History - Family History Family Medical History: Noncontributory - Tobacco Use Smoking Status *Q: Never Smoker - Caffeine Use Caffeine Use: Reports: Coffee, Tea ED ROS GENERAL - Review of Systems Review Of Systems: See Below Constitutional: Reports: Fever, Diaphoresis HEENT: Reports: No Symptoms Respiratory: Reports: No Symptoms Cardiovascular: Reports: No Symptoms Endocrine: Reports: No Symptoms GI/Abdominal: Reports: No Symptoms : Reports: Dysuria, Frequency, Urgency Musculoskeletal: Reports: No Symptoms Skin: Reports: No Symptoms Neurological: Reports: No Symptoms Psychiatric: Reports: No Symptoms Hematologic/Lymphatic: Reports: No Symptoms Immunologic: Reports: No Symptoms ED EXAM, GENERAL - Physical Exam Exam: See Below Exam Limited By: Other (recent diagnosis of alzheimers) General Appearance: Alert, WD/WN, No Apparent Distress Eye Exam: Bilateral Eye: EOMI, Normal Inspection, PERRL Ears: Normal External Exam, Normal Canal, Hearing Grossly Normal, Normal TMs Nose: Normal Inspection, Normal Mucosa, No Blood Throat/Mouth: Normal Inspection, Normal Lips, Normal Teeth, Normal Gums, Normal Oropharynx, Normal Voice, No Airway Compromise Head: Atraumatic, Normocephalic Neck: Normal Inspection, Supple, Non-Tender, Full Range of Motion Respiratory/Chest: No Respiratory Distress, Lungs Clear, Normal Breath Sounds, No Accessory Muscle Use, Chest Non-Tender Cardiovascular: Normal Peripheral Pulses, Regular Rate, Rhythm, No Edema, No Gallop, Systolic Murmur GI/Abdominal: Normal Bowel Sounds, Soft, Non-Tender, No Organomegaly, No Distention, No Abnormal Bruit, No Mass Back Exam: Normal Inspection, Full Range of Motion, NT Extremities: Normal Inspection, Normal Range of Motion, Non-Tender, Normal Capillary Refill, No Pedal Edema Neurological: Alert, Oriented, CN II-XII Intact, Normal Cognition, Normal Gait, Normal Reflexes, No Motor/Sensory Deficits Psychiatric: Normal Affect, Normal Mood Skin Exam: Warm, Dry, Intact, Normal Color, No Rash Lymphatic: No Adenopathy Course - Vital Signs Last Recorded V/S: Last Vital Signs Temp 36.3 C 12/25/17 22:20 Pulse 60 12/25/17 22:20 Resp 18 12/25/17 22:20 BP 127/54 L 12/25/17 22:20 Pulse Ox 95 12/25/17 22:20 - Orders/Labs/Meds Orders: Active Orders 24 hr Category Date Time Status CULTURE URINE [RM] Stat Lab 12/25/17 23:07 Ordered UA W/MICROSCOPIC [URIN] Stat Lab 12/25/17 23:07 Ordered Saline Lock Insert [OM.PC] Routine Oth 12/25/17 22:57 Ordered Labs: Laboratory Tests 12/25/17 12/25/17 12/25/17 Range/Units 22:56 22:56 22:56 WBC 10.7 H (4.0-10.0) x10^3/uL RBC 4.05 (4.00-5.50) x10^6/uL Hgb 12.9 (12.0-16.0) g/dL Hct 38.6 (33.0-47.0) % MCV 95.3 H (78.0-93.0) fL MCH 31.9 (26.0-32.0) pg MCHC 33.4 (32.0-36.0) g/dL RDW Coeff of Dione 13.0 (10.0-15.0) % Plt Count 225 (130-400) x10^3/uL Neut % (Auto) 83.4 H (50.0-80.0) % Lymph % (Auto) 7.8 L (25.0-50.0) % [place] % (Auto) 6.4 (2.0-11.0) % Eos % (Auto) 2.2 (0.0-4.0) % Baso % (Auto) 0.2 (0.2-1.2) % Sodium 137 (136-145) mmol/L Potassium 3.7 (3.5-5.1) mmol/L Chloride 103 (98-107) mmol/L Carbon Dioxide 26 (21-32) mmol/L Anion Gap 11.7 (10-20) mmol/L BUN 20 H (7-18) mg/dL Creatinine 1.1 H (0.55-1.02) mg/dL Est Cr Clr Drug Dosing TNP Estimated GFR (MDRD) 48 Glucose 144 H (74-106) mg/dL Lactic Acid 0.6 (0.4-2.0) mmol/L Calcium 8.5 (8.5-10.1) mg/dL Magnesium (1.8-2.4) mg/dL C-Reactive Protein (<=0.9) mg/dL NT-Pro-B Natriuret Pep (<=450) pg/mL TSH, Ultra Sensitive (0.358-3.74) uIU/mL Urine Color (YELLOW) Urine Appearance (CLEAR) Urine pH (5.0-8.0) Ur Specific [place] Urine Protein (NEGATIVE) mg/dL Urine Glucose (UA) (NEGATIVE) mg/dL Urine Ketones (NEGATIVE) mg/dL Urine Occult Blood (NEGATIVE) Urine Nitrite (NEGATIVE) Urine Bilirubin (NEGATIVE) Urine Urobilinogen (0.2) EU/dL Ur Leukocyte Esterase (NEGATIVE) Urine RBC (NOT SEEN) /HPF Urine WBC (NOT SEEN) /HPF Urine WBC Clumps Ur Squamous Epith Cells (NEGATIVE) /HPF Urine Bacteria (NEGATIVE) /HPF Hyaline Casts (NEGATIVE) /HPF Urine Mucus (NEGATIVE) /LPF Ur Yeast w Hyphae Urine Yeast (Budding) 12/25/17 12/25/17 12/25/17 Range/Units 22:56 22:56 23:07 WBC (4.0-10.0) x10^3/uL RBC (4.00-5.50) x10^6/uL Hgb (12.0-16.0) g/dL Hct (33.0-47.0) % MCV (78.0-93.0) fL MCH (26.0-32.0) pg MCHC (32.0-36.0) g/dL RDW Coeff of Dione (10.0-15.0) % Plt Count (130-400) x10^3/uL Neut % (Auto) (50.0-80.0) % Lymph % (Auto) (25.0-50.0) % [place] % (Auto) (2.0-11.0) % Eos % (Auto) (0.0-4.0) % Baso % (Auto) (0.2-1.2) % Sodium (136-145) mmol/L Potassium (3.5-5.1) mmol/L Chloride (98-107) mmol/L Carbon Dioxide (21-32) mmol/L Anion Gap (10-20) mmol/L BUN (7-18) mg/dL Creatinine (0.55-1.02) mg/dL Est Cr Clr Drug Dosing Estimated GFR (MDRD) Glucose (74-106) mg/dL Lactic Acid (0.4-2.0) mmol/L Calcium (8.5-10.1) mg/dL Magnesium 2.3 (1.8-2.4) mg/dL C-Reactive Protein 9.7 H (<=0.9) mg/dL NT-Pro-B Natriuret Pep 373 (<=450) pg/mL TSH, Ultra Sensitive 2.937 (0.358-3.74) uIU/mL Urine Color Dark yellow H (YELLOW) Urine Appearance Turbid H (CLEAR) Urine pH 5.5 (5.0-8.0) Ur Specific [place] >=1.030 Urine Protein Trace H (NEGATIVE) mg/dL Urine Glucose (UA) Negative (NEGATIVE) mg/dL Urine Ketones Trace H (NEGATIVE) mg/dL Urine Occult Blood Negative (NEGATIVE) Urine Nitrite Negative (NEGATIVE) Urine Bilirubin Negative (NEGATIVE) Urine Urobilinogen 0.2 (0.2) EU/dL Ur Leukocyte Esterase Moderate H (NEGATIVE) Urine RBC 5-10 H (NOT SEEN) /HPF Urine WBC 40-50 H (NOT SEEN) /HPF Urine WBC Clumps Few Ur Squamous Epith Cells Many H (NEGATIVE) /HPF Urine Bacteria Moderate H (NEGATIVE) /HPF Hyaline Casts Few H (NEGATIVE) /HPF Urine Mucus Few H (NEGATIVE) /LPF Ur Yeast w Hyphae Few Urine Yeast (Budding) Few Meds: Medications Discontinued Medications Generic Name Dose Route Start Last Admin Trade Name Freq PRN Reason Stop Dose Admin Ciprofloxacin 500 mg 12/25/17 23:53 12/26/17 00:17 Ciprofloxacin Hcl PO 12/25/17 23:54 500 mg ONETIME ONE Administration Sodium Chloride 1,000 mls @ 999 mls/hr 12/25/17 22:57 12/25/17 23:15 Normal Saline IV 12/25/17 23:57 999 mls/hr ONETIME ONE Administration Sodium Chloride 10 ml 12/25/17 22:57 Saline Flush FLUSH ASDIRECTED PRN Keep Vein Open Departure - Departure Time of Disposition: 00:12 Disposition: Home, Self-Care 01 Condition: Good Clinical Impression: Urinary tract infection Qualifiers: Urinary tract infection type: acute cystitis Hematuria presence: with hematuria Qualified Code(s): N30.01 - Acute cystitis with hematuria - Discharge Information Instructions: Urinary Tract Infection, Adult, [id number] Referrals: Susan Ford MD [Primary Care Provider] - Forms: ED Department Discharge Additional Instructions: Please take the Cipro twice daily until gone. I prescribed Cipro 500 mg BID for 7 days. Stop taking if you develop any swelling of the face, tongue, or throat or any shortness of breath. Make sure to keep your appointment with Dr. Ford on Monday. Drink plenty of water to help flush the kidneys. Follow up for any additional symptoms at the clinic. Please call with any further questions or concerns. - Problem List & Annotations (1) Urinary tract infection SNOMED Code(s): 03172572 Code(s): N39.0 - URINARY TRACT INFECTION, SITE NOT SPECIFIED Status: Acute Priority: Medium Qualifiers: Urinary tract infection type: acute cystitis Hematuria presence: with hematuria Qualified Code(s): N30.01 - Acute cystitis with hematuria - Problem List Review Problem List Initiated/Reviewed/Updated: Yes - My Orders Last 24 Hours: My Active Orders 12/25/17 22:57 Saline Lock Insert [OM.PC] Routine 12/25/17 23:07 CULTURE URINE [RM] Stat UA W/MICROSCOPIC [URIN] Stat - Assessment/Plan Last 24 Hours: My Active Orders 12/25/17 22:57 Saline Lock Insert [OM.PC] Routine 12/25/17 23:07 CULTURE URINE [RM] Stat UA W/MICROSCOPIC [URIN] Stat Assessment:: Urinary tract infection Plan: Please take the Cipro twice daily until gone. I prescribed Cipro 500 mg BID for 7 days. Stop taking if you develop any swelling of the face, tongue, or throat or any shortness of breath. Make sure to keep your appointment with Dr. Ford on Monday. Drink plenty of water to help flush the kidneys. Follow up for any additional symptoms at the clinic. Please call with any further questions or concerns.
[2017-12-25 23:30] LABS: CHLORIDE,CL 103 mmol/L (98-107); SODIUM,NA 137 mmol/L (136-145)
[2017-12-25] MEDS ORDERED: Ciprofloxacin 500 MG Tab PO ONE (23:53)
== END 2017-12-26 00:24 | disposition home or self-care (01) ==
LOC: VM.ED 22:05
DX: N30.01 Acute cystitis with hematuria (principal); E11.9 Type 2 diabetes mellitus without complications; E03.9 Hypothyroidism, unspecified; Z91.018 Allergy to other foods; Z79.82 Long term (current) use of aspirin; Z79.899 Other long term (current) drug therapy
CPT/HCPCS: 36415; 80048; 81001; 83605; 83735; 83880; 84443; 85025; 86140; 87086; 96360; 99283; 99285; A9270; J7030

== ENCOUNTER 2017-12-26 21:54 | Inpatient (IN) | payer MEDICARE, OTHER ==
[2017-12-26] MEDS ORDERED: Sodium Chloride 0.9% 10 ML Syringe FLUSH PRN (22:11)
[2017-12-26] MEDS ORDERED: Sodium Chloride 0.9% 1,000 ML IV ONE (22:33)
[2017-12-26] MEDS: Ciprofloxacin in D5W 400 MG in Premix Bag 1 BAG IV SCH ×2 (22:55)
[2017-12-26 23:22] LABS: CHLORIDE,CL 100 mmol/L (98-107); SODIUM,NA 133 mmol/L (136-145)
[2017-12-27] MEDS ORDERED: Acetaminophen 325 MG Tab PO PRN (00:43)
[2017-12-27] MEDS: Sodium Chloride 0.9% 1,000 ML IV SCH ×2 (01:46→12:46)
--- NOTE | 2017-12-27 03:37 | EDM.PDOC ---
ED HPI GENERAL MEDICAL PROBLEM - General Chief Complaint: Genitourinary Problem Stated Complaint: weakness, UTI, fever Time Seen by Provider: 12/26/17 22:05 Source of Information: Reports: Family - History of Present Illness INITIAL COMMENTS - FREE TEXT/NARRATIVE: PtCorrine presents to ER with complaints of UTI. She was diagnosed last evening with UTI and started on oral cipro. She has had 2 doses of this. She has been chilled and weak, and basically unable to stand. She has a history of dementia. She offers no complaints, other than being chilled. No nausea, vomiting, or diarrhea. She has not been complaining of chest pain or shortness of breath. Onset: Today Onset Date: 12/27/17 Onset Time: 22:05 Location: Reports: Chest - Related Data Allergies Allergy/AdvReac Type Severity Reaction Status Date / Time soy Allergy Nausea Verified 12/25/17 22:25 Home Meds: Home Meds Advanced Joint Relief 1 tab PO DAILY 09/05/17 [History] Ascorbic Acid [Vitamin C] 1,000 mg PO DAILY 09/05/17 [History] Aspirin [Halfprin] 81 mg PO DAILY 09/05/17 [History] Calcium Carb/D3/Magnesium/Zinc [Glxbucp-Mik-Hvto-Vit D] 1 each PO DAILY [History] Cholecalciferol (Vitamin D3) [Vitamin D3] 600 mg PO DAILY 09/05/17 [History] Co Enzyme 1 tab PO DAILY 09/05/17 [History] Coconut Oil 1,000 mg PO BID 09/05/17 [History] Multivitamin with Minerals [Multiple Vitamin] 2 each PO BID 09/05/17 [History] Similasan 1 drop EYEBOTH ASDIRECTED PRN 09/05/17 [History] Zinc 50 mg PO DAILY 09/05/17 [History] Donepezil [Aricept] 5 mg PO BEDTIME 12/25/17 [History] Levothyroxine Sodium [Synthroid] 1 tab PO DAILY 12/25/17 [History] Lisinopril/Hydrochlorothiazide [Lisinopril-Hctz 10-12.5 mg Tab] 1 tab PO DAILY 12/25/17 [History] Past Medical History HEENT History: Reports: Cataract Cardiovascular History: Reports: Afib Other Cardiovascular History: hx of afib Respiratory History: Reports: None Gastrointestinal History: Reports: Chronic Constipation Genitourinary History: Reports: Urinary Incontinence 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 Other Psychiatric History: forgetful @ times Endocrine/Metabolic History: Reports: Diabetes, Type II, Hypothyroidism - Infectious Disease History Infectious Disease History: Reports: Chicken Pox, Measles - Past Surgical History HEENT Surgical History: Reports: Other (See Below) Other HEENT Surgeries/Procedures: tonsillectomy GI Surgical History: Reports: Appendectomy, Cholecystectomy, Colonoscopy Social & Family History - Family History Family Medical History: Noncontributory - Tobacco Use Smoking Status *Q: Never Smoker - Caffeine Use Caffeine Use: Reports: Coffee, Tea - Recreational Drug Use Recreational Drug Use: No ED ROS GENERAL - Review of Systems Review Of Systems: See Below Constitutional: Reports: Fever, Chills, Malaise, Weakness, Fatigue HEENT: Reports: No Symptoms Respiratory: Reports: No Symptoms Cardiovascular: Reports: No Symptoms Endocrine: Reports: No Symptoms GI/Abdominal: Reports: No Symptoms : Reports: Other (uti) Musculoskeletal: Reports: No Symptoms Skin: Reports: No Symptoms Neurological: Reports: Confusion Psychiatric: Reports: No Symptoms Hematologic/Lymphatic: Reports: No Symptoms Immunologic: Reports: No Symptoms ED EXAM, GENERAL - Physical Exam Exam: See Below Exam Limited By: Altered Mental Status General Appearance: Alert, WD/WN, No Apparent Distress Ears: Normal External Exam, Normal Canal, Hearing Grossly Normal, Normal TMs Ear Exam: Bilateral Ear: Auricle Normal, Canal Normal, TM normal Nose: Normal Inspection, Normal Mucosa, No Blood Throat/Mouth: Normal Inspection, Normal Lips, Normal Teeth, Normal Gums, Normal Oropharynx, Normal Voice, No Airway Compromise Head: Atraumatic, Normocephalic Neck: Normal Inspection, Supple, Non-Tender, Full Range of Motion Respiratory/Chest: No Respiratory Distress, Lungs Clear, Normal Breath Sounds, No Accessory Muscle Use, Chest Non-Tender GI/Abdominal: Normal Bowel Sounds, Soft, Non-Tender, No Organomegaly, No Distention, No Abnormal Bruit, No Mass (Female) Exam: Deferred Rectal (Female) Exam: Deferred Back Exam: Normal Inspection, Full Range of Motion, CVA Tenderness (L), CVA Tenderness (R) Extremities: Normal Inspection, Normal Range of Motion, Non-Tender, Normal Capillary Refill, No Pedal Edema Neurological: Oriented, CN II-XII Intact, Normal Reflexes, No Motor/Sensory Deficits, Disoriented, Slow to Respond, Memory Loss Remote Events, Memory Loss Recent Events Psychiatric: Normal Affect, Normal Mood Skin Exam: Warm, Dry, Intact, Normal Color, No Rash Lymphatic: No Adenopathy Course - Vital Signs Last Recorded V/S: Last Vital Signs Temp 36.9 C 12/27/17 02:00 Pulse 50 L 12/27/17 02:00 Resp 18 12/27/17 02:00 BP 116/50 L 12/27/17 02:00 Pulse Ox 96 12/27/17 02:00 - Orders/Labs/Meds Orders: Active Orders 24 hr Category Date Time Status Chest 1V Frontal [CR] Stat Exams 12/26/17 22:11 Taken CULTURE BLOOD [BC] Stat Lab 12/26/17 22:40 Received CULTURE BLOOD [BC] Stat Lab 12/26/17 22:45 Received Ciprofloxacin in D5W [Cipro in D5W 400 MG/200 ML] 400 Med 12/26/17 22:45 Active mg Premix Bag 1 bag IV Q12H Sodium Chloride 0.9% [Saline Flush] Med 12/26/17 22:11 Active 10 ml FLUSH ASDIRECTED PRN Blood Culture x2 Reflex Set [OM.PC] Stat Oth 12/26/17 22:12 Ordered Peripheral IV Insertion Adult [OM.PC] Routine Oth 12/26/17 22:12 Ordered Medication Orders Acetaminophen (Tylenol) 650 mg PO Q4H PRN PRN Reason: Pain/Fever Enoxaparin Sodium (Lovenox) 40 mg SUBCUT DAILY [facility] Ciprofloxacin/Dextrose 400 mg/ (Premix) 200 mls @ 200 mls/hr IV Q12H [facility] Last Admin: 12/26/17 22:55 Dose: 200 mls/hr Sodium Chloride (Normal Saline) 1,000 mls @ 100 mls/hr IV ASDIRECTED [facility] Last Admin: 12/27/17 01:46 Dose: 100 mls/hr Sodium Chloride (Saline Flush) 10 ml FLUSH ASDIRECTED PRN PRN Reason: Keep Vein Open Labs: Laboratory Tests 12/26/17 12/26/17 12/26/17 Range/Units 22:40 22:40 22:40 WBC 9.9 (4.0-10.0) x10^3/uL RBC 3.91 L (4.00-5.50) x10^6/uL Hgb 12.5 (12.0-16.0) g/dL Hct 37.0 (33.0-47.0) % MCV 94.6 H (78.0-93.0) fL MCH 32.0 (26.0-32.0) pg MCHC 33.8 (32.0-36.0) g/dL RDW Coeff of Dione 12.9 (10.0-15.0) % Plt Count 199 (130-400) x10^3/uL Add Manual Diff Yes Neutrophils % (Manual) 86 H (50-80) % Band Neutrophils % 7 H (0-6) % Lymphocytes % (Manual) 4 L (25-50) % Monocytes % (Manual) 1 L (2-11) % Eosinophils % (Manual) 2 (0-4) % Platelet Estimate Adequate PT 11.0 (9.6-11.4) SEC INR 1.1 L (2.0-3.5) Sodium 133 L (136-145) mmol/L Potassium 3.7 (3.5-5.1) mmol/L Chloride 100 (98-107) mmol/L Carbon Dioxide 25 (21-32) mmol/L Anion Gap 11.7 (10-20) mmol/L BUN 21 H (7-18) mg/dL Creatinine 1.1 H (0.55-1.02) mg/dL Est Cr Clr Drug Dosing TNP Estimated GFR (MDRD) 48 Glucose 147 H (74-106) mg/dL Lactic Acid (0.4-2.0) mmol/L Calcium 8.0 L (8.5-10.1) mg/dL Corrected Calcium 8.64 (8.5-10.1) mg/dL Phosphorus 2.5 L (2.6-4.7) mg/dL Magnesium 2.1 (1.8-2.4) mg/dL Total Bilirubin 0.5 (0.2-1.0) mg/dL AST 58 H (15-37) U/L ALT 42 (14-59) U/L Alkaline Phosphatase 53 (46-116) U/L Troponin I (<=0.056) ng/mL Total Protein 6.9 (6.4-8.2) g/dL Albumin 3.2 L (3.4-5.0) g/dL Globulin 3.7 Albumin/Globulin Ratio 0.86 TSH, Ultra Sensitive 4.669 H (0.358-3.74) uIU/mL 12/26/17 12/26/17 Range/Units 22:40 22:40 WBC (4.0-10.0) x10^3/uL RBC (4.00-5.50) x10^6/uL Hgb (12.0-16.0) g/dL Hct (33.0-47.0) % MCV (78.0-93.0) fL MCH (26.0-32.0) pg MCHC (32.0-36.0) g/dL RDW Coeff of Dione (10.0-15.0) % Plt Count (130-400) x10^3/uL Add Manual Diff Neutrophils % (Manual) (50-80) % Band Neutrophils % (0-6) % Lymphocytes % (Manual) (25-50) % Monocytes % (Manual) (2-11) % Eosinophils % (Manual) (0-4) % Platelet Estimate PT (9.6-11.4) SEC INR (2.0-3.5) Sodium (136-145) mmol/L Potassium (3.5-5.1) mmol/L Chloride (98-107) mmol/L Carbon Dioxide (21-32) mmol/L Anion Gap (10-20) mmol/L BUN (7-18) mg/dL Creatinine (0.55-1.02) mg/dL Est Cr Clr Drug Dosing Estimated GFR (MDRD) Glucose (74-106) mg/dL Lactic Acid 0.7 (0.4-2.0) mmol/L Calcium (8.5-10.1) mg/dL Corrected Calcium (8.5-10.1) mg/dL Phosphorus (2.6-4.7) mg/dL Magnesium (1.8-2.4) mg/dL Total Bilirubin (0.2-1.0) mg/dL AST (15-37) U/L ALT (14-59) U/L Alkaline Phosphatase (46-116) U/L Troponin I < 0.017 (<=0.056) ng/mL Total Protein (6.4-8.2) g/dL Albumin (3.4-5.0) g/dL Globulin Albumin/Globulin Ratio TSH, Ultra Sensitive (0.358-3.74) uIU/mL Meds: Medications Generic Name Dose Route Start Last Admin Trade Name Freq PRN Reason Stop Dose Admin Acetaminophen 650 mg 12/27/17 00:43 Tylenol PO Q4H PRN Pain/Fever Enoxaparin Sodium 40 mg 12/27/17 08:00 Lovenox SUBCUT DAILY [facility] Ciprofloxacin/Dextrose 400 mg/ 200 mls @ 200 mls/hr 12/26/17 22:45 12/26/17 22:55 Premix IV 200 mls/hr Q12H [facility] Administration Sodium Chloride 1,000 mls @ 100 mls/hr 12/26/17 23:45 12/27/17 01:46 Normal Saline IV 100 mls/hr ASDIRECTED [facility] Administration Sodium Chloride 10 ml 12/26/17 22:11 Saline Flush FLUSH ASDIRECTED PRN Keep Vein Open Discontinued Medications Generic Name Dose Route Start Last Admin Trade Name Freq PRN Reason Stop Dose Admin Sodium Chloride 1,000 mls @ 1,000 mls/hr 12/26/17 22:33 12/26/17 22:55 Normal Saline IV 12/26/17 23:32 1,000 mls/hr .BOLUS ONE Administration Departure - Departure Time of Disposition: 23:45 Disposition: Admitted As Inpatient 67 Condition: Good Clinical Impression: UTI, Urinary tract infectious disease - Discharge Information - My Orders Last 24 Hours: My Active Orders 12/26/17 22:11 Chest 1V Frontal [CR] Stat Sodium Chloride 0.9% [Saline Flush] 10 ml FLUSH ASDIRECTED PRN 12/26/17 22:12 Blood Culture x2 Reflex Set [OM.PC] Stat Peripheral IV Insertion Adult [OM.PC] Routine 12/26/17 22:40 CULTURE BLOOD [BC] Stat 12/26/17 22:45 CULTURE BLOOD [BC] Stat Ciprofloxacin in D5W [Cipro in D5W 400 MG/200 ML] 400 mg Premix Bag 1 bag IV Q12H - Assessment/Plan Last 24 Hours: My Active Orders 12/26/17 22:11 Chest 1V Frontal [CR] Stat Sodium Chloride 0.9% [Saline Flush] 10 ml FLUSH ASDIRECTED PRN 12/26/17 22:12 Blood Culture x2 Reflex Set [OM.PC] Stat Peripheral IV Insertion Adult [OM.PC] Routine 12/26/17 22:40 CULTURE BLOOD [BC] Stat 12/26/17 22:45 CULTURE BLOOD [BC] Stat Ciprofloxacin in D5W [Cipro in D5W 400 MG/200 ML] 400 mg Premix Bag 1 bag IV Q12H
[2017-12-27] MEDS ORDERED: Dextran 70/Hypromellose/PF Ophth Soln 0.9 ML UD EYEBOTH PRN (05:44)
[2017-12-27] MEDS ORDERED: Levothyroxine 125 MCG Tab PO SCH (07:00)
[2017-12-27] MEDS ORDERED: LISINOPRIL PO SCH (08:00)
[2017-12-27] MEDS ORDERED: [UNRECOGNIZED DRUG - OTHER] PO SCH (08:00)
[2017-12-27] MEDS ORDERED: HYDROCHLOROTHIAZIDE PO SCH (08:00)
[2017-12-27] MEDS ORDERED: COCONUT OIL 1000 MG PO SCH (08:00)
[2017-12-27] MEDS ORDERED: CO ENZYME PO SCH (08:00)
[2017-12-27] MEDS: Enoxaparin 40 MG/0.4 ML Syringe SUBCUT SCH (08:03)
[2017-12-27] MEDS: Multivitamins with Iron/Calcium/Folic Acid/Minerals Tab PO SCH ×2 (08:08→20:10)
[2017-12-27] MEDS: Lisinopril 10 MG Tab PO SCH (08:08)
[2017-12-27] MEDS: Ascorbic Acid 500 MG Tab PO SCH (08:09)
[2017-12-27] MEDS: Aspirin 81 MG Tab.EC PO SCH (08:09)
[2017-12-27] MEDS: Hydrochlorothiazide 12.5 MG Cap PO SCH (08:09)
[2017-12-27] MEDS: Cholecalciferol (Vitamin D3) 400 Unit Tab PO SCH (08:09)
[2017-12-27] MEDS: Zinc (Zinc Gluconate) 50 MG Tab PO SCH (08:09)
--- NOTE | 2017-12-27 08:53 | PCM.HP ---
H&P History of Present Illness - General Admit Problem/Dx: HPI: She has rather rapidly developing dementia, was brought to ER 12/25/17 with C/O dysuria and low-grade fever. Also was weak that night, said to be unable to stand up by herself. Noted to have increased hallucinations, had previously had some of them but now worse. In the ER her urine showed positive leukocyte esterase, mildly elevated RBCs, and microscopic pyuria. Other lab was unremarkable. Urine culture was done and she was started on Cipro 500 mg BID and sent home. So far her urine culture is growing mixed lópez. Family brought her back to the ER in evening of 12/26/17 with C/O being even weaker, unable to stand, complaining of chills, felt that she was incapable of being at home. Her CBC was essentially unchanged, WBCs 9900 and on repeat 7500 , similar to the previous night. Lab otherwise unremarkable. She was indeed weak and confused and was admitted to acute care, Cipro changed to IV, awaiting urine culture from the previous night. At the time of admission she was said to require assistance of 2 people to walk. During the night she slept well, went to the bathroom with assistance of one this morning, and has remained afebrile. Patient cannot give me any history of what happened, says she lost track of what happened, says they tell me that I had a wild night, although the nurse confirms that her stay so far has been unremarkable and she slept through the night. 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 She is Code Level I. Systems Review: Constitutional: Memory is poor and this ROS is probably unreliable ENT: Says she has only a few teeth remaining, has a partial, and her hearing is not perfect but OK Eyes: Wears glasses, did not remember that she has had cataract surgery Cardiac: Denies exertional chest pain, denies ever having a heart attack Pulmonary: Never a smoker, denies any cough or dyspnea or other lung problems GI: Chart says she has had polyps; denies any diarrhea or nausea : Denies any symptoms now, see ER report Musculoskeletal: Some arthritis especially in her hands Endocrine: She is on 125 g daily but does not require any medication for her diabetes Heme: No anemia, WBC normal Derm: Nothing recorded Neuro: Her MMSE scores have only been mildly decreased but [facility] reports that her dementia has been increasing fairly rapidly, has had negative brain imaging except for atrophy Psych: Denies any depression, nothing in chart about this either Allergies: Denies hayfever, but says her mother had Physical Exam: General: VS OK, obviously answers questions poorly but is alert, congenial and willing to converse Eyes: Pupils equal Ears: Hearing seems OK, TMs obscured by cerumen Mouth and throat: Appears well hydrated: Has partial dentures Neck: No masses or bruit Heart: Sounds regular and normal, no ankle edema Lungs: Clear Abdomen: Soft, nontender, even in suprapubic area; no masses or organomegaly Extremities: Thickening of IP joints of fingers with mild deformity, knees lack about 10 of full extension, some arthritic deformities of feet; excellent posterior tibial pulses in feet Neurologic: Facial muscles symmetric, moves her extremities normally; obvious dementia Psych: Affect normal Impression: -Cognitive dysfunction worsening and increased hallucinations, probably aggravated by UTI -She is eating OK and can switch back to oral Cipro -If she cant get back on her feet again and D/Cd by tomorrow she will probably need swing bed for a time Plan: -PT/OT assessment -Switch Cipro back to oral -[facility] can decide tomorrow if able to go home or need swing bed - Related Data Allergies/Adverse Reactions: Allergies Allergy/AdvReac Type Severity Reaction Status Date / Time soy Allergy Nausea Verified 12/25/17 22:25 Home Medications: Home Meds Advanced Joint Relief 1 tab PO DAILY 09/05/17 [History] Ascorbic Acid [Vitamin C] 1,000 mg PO DAILY 09/05/17 [History] Aspirin [Halfprin] 81 mg PO DAILY 09/05/17 [History] Calcium Carb/D3/Magnesium/Zinc [Dncszup-Epq-Dhjp-Vit D] 1 each PO DAILY [History] Cholecalciferol (Vitamin D3) [Vitamin D3] 600 mg PO DAILY 09/05/17 [History] Co Enzyme 1 tab PO DAILY 09/05/17 [History] Coconut Oil 1,000 mg PO BID 09/05/17 [History] Multivitamin with Minerals [Multiple Vitamin] 2 each PO BID 09/05/17 [History] Similasan 1 drop EYEBOTH ASDIRECTED PRN 09/05/17 [History] Zinc 50 mg PO DAILY 09/05/17 [History] Donepezil [Aricept] 5 mg PO BEDTIME 12/25/17 [History] Levothyroxine Sodium [Synthroid] 1 tab PO DAILY 12/25/17 [History] Lisinopril/Hydrochlorothiazide [Lisinopril-Hctz 10-12.5 mg Tab] 1 tab PO DAILY 12/25/17 [History] Past Medical History HEENT History: Reports: Cataract Cardiovascular History: Reports: Afib Other Cardiovascular History: hx of afib Respiratory History: Reports: None Gastrointestinal History: Reports: Chronic Constipation Genitourinary History: Reports: Urinary Incontinence HEALTH CARE ADMINISTRATOR History: Reports: None Musculoskeletal History: Reports: RA Neurological History: Reports: Alzheimers Disease, Concussion, Other (See Below) Other Neuro History: Early Alzheimers. Other Psychiatric History: forgetful @ times Endocrine/Metabolic History: Reports: Diabetes, Type II, Hypothyroidism - Infectious Disease History Infectious Disease History: Reports: Chicken Pox, Measles - Past Surgical History HEENT Surgical History: Reports: Other (See Below) Other HEENT Surgeries/Procedures: tonsillectomy GI Surgical History: Reports: Appendectomy, Cholecystectomy, Colonoscopy Social & Family History - Family History Family Medical History: Noncontributory - Tobacco Use Smoking Status *Q: Never Smoker - Caffeine Use Caffeine Use: Reports: Coffee, Tea - Recreational Drug Use Recreational Drug Use: No H&P Review of Systems - Review of Systems: Review Of Systems: See Below Exam - Exam Exam: See Below - Vital Signs Vital Signs: Last Vital Signs Temp 36.6 C 12/27/17 05:42 Pulse 57 L 12/27/17 05:42 Resp 18 12/27/17 05:42 BP 148/63 H 12/27/17 05:42 Pulse Ox 100 12/27/17 05:42 Weight: 77.292 kg - Patient Data Lab Results Last 24 hrs: Laboratory Results - last 24 hr 12/26/17 12/26/17 12/26/17 Range/Units 22:40 22:40 22:40 WBC 9.9 (4.0-10.0) x10^3/uL RBC 3.91 L (4.00-5.50) x10^6/uL Hgb 12.5 (12.0-16.0) g/dL Hct 37.0 (33.0-47.0) % MCV 94.6 H (78.0-93.0) fL MCH 32.0 (26.0-32.0) pg MCHC 33.8 (32.0-36.0) g/dL RDW Coeff of Dione 12.9 (10.0-15.0) % Plt Count 199 (130-400) x10^3/uL Neut % (Auto) (50.0-80.0) % Lymph % (Auto) (25.0-50.0) % [place] % (Auto) (2.0-11.0) % Eos % (Auto) (0.0-4.0) % Baso % (Auto) (0.2-1.2) % Add Manual Diff Yes Neutrophils % (Manual) 86 H (50-80) % Band Neutrophils % 7 H (0-6) % Lymphocytes % (Manual) 4 L (25-50) % Monocytes % (Manual) 1 L (2-11) % Eosinophils % (Manual) 2 (0-4) % Platelet Estimate Adequate PT 11.0 (9.6-11.4) SEC INR 1.1 L (2.0-3.5) Sodium 133 L (136-145) mmol/L Potassium 3.7 (3.5-5.1) mmol/L Chloride 100 (98-107) mmol/L Carbon Dioxide 25 (21-32) mmol/L Anion Gap 11.7 (10-20) mmol/L BUN 21 H (7-18) mg/dL Creatinine 1.1 H (0.55-1.02) mg/dL Est Cr Clr Drug Dosing TNP Estimated GFR (MDRD) 48 Glucose 147 H (74-106) mg/dL POC Glucose (74-106) mg/dL Lactic Acid (0.4-2.0) mmol/L Calcium 8.0 L (8.5-10.1) mg/dL Corrected Calcium 8.64 (8.5-10.1) mg/dL Phosphorus 2.5 L (2.6-4.7) mg/dL Magnesium 2.1 (1.8-2.4) mg/dL Total Bilirubin 0.5 (0.2-1.0) mg/dL AST 58 H (15-37) U/L ALT 42 (14-59) U/L Alkaline Phosphatase 53 (46-116) U/L Troponin I (<=0.056) ng/mL Total Protein 6.9 (6.4-8.2) g/dL Albumin 3.2 L (3.4-5.0) g/dL Globulin 3.7 Albumin/Globulin Ratio 0.86 TSH, Ultra Sensitive 4.669 H (0.358-3.74) uIU/mL 12/26/17 12/26/17 12/27/17 Range/Units 22:40 22:40 06:28 WBC (4.0-10.0) x10^3/uL RBC (4.00-5.50) x10^6/uL Hgb (12.0-16.0) g/dL Hct (33.0-47.0) % MCV (78.0-93.0) fL MCH (26.0-32.0) pg MCHC (32.0-36.0) g/dL RDW Coeff of Dione (10.0-15.0) % Plt Count (130-400) x10^3/uL Neut % (Auto) (50.0-80.0) % Lymph % (Auto) (25.0-50.0) % [place] % (Auto) (2.0-11.0) % Eos % (Auto) (0.0-4.0) % Baso % (Auto) (0.2-1.2) % Add Manual Diff Neutrophils % (Manual) (50-80) % Band Neutrophils % (0-6) % Lymphocytes % (Manual) (25-50) % Monocytes % (Manual) (2-11) % Eosinophils % (Manual) (0-4) % Platelet Estimate PT (9.6-11.4) SEC INR (2.0-3.5) Sodium (136-145) mmol/L Potassium (3.5-5.1) mmol/L Chloride (98-107) mmol/L Carbon Dioxide (21-32) mmol/L Anion Gap (10-20) mmol/L BUN (7-18) mg/dL Creatinine (0.55-1.02) mg/dL Est Cr Clr Drug Dosing Estimated GFR (MDRD) Glucose (74-106) mg/dL POC Glucose 134 H (74-106) mg/dL Lactic Acid 0.7 (0.4-2.0) mmol/L Calcium (8.5-10.1) mg/dL Corrected Calcium (8.5-10.1) mg/dL Phosphorus (2.6-4.7) mg/dL Magnesium (1.8-2.4) mg/dL Total Bilirubin (0.2-1.0) mg/dL AST (15-37) U/L ALT (14-59) U/L Alkaline Phosphatase (46-116) U/L Troponin I < 0.017 (<=0.056) ng/mL Total Protein (6.4-8.2) g/dL Albumin (3.4-5.0) g/dL Globulin Albumin/Globulin Ratio TSH, Ultra Sensitive (0.358-3.74) uIU/mL 12/27/17 12/27/17 Range/Units 06:48 06:48 WBC 7.5 (4.0-10.0) x10^3/uL RBC 3.86 L (4.00-5.50) x10^6/uL Hgb 12.3 (12.0-16.0) g/dL Hct 37.2 (33.0-47.0) % MCV 96.4 H (78.0-93.0) fL MCH 31.9 (26.0-32.0) pg MCHC 33.1 (32.0-36.0) g/dL RDW Coeff of Dione 13.1 (10.0-15.0) % Plt Count 192 (130-400) x10^3/uL Neut % (Auto) 72.4 (50.0-80.0) % Lymph % (Auto) 14.4 L (25.0-50.0) % [place] % (Auto) 8.9 (2.0-11.0) % Eos % (Auto) 4.0 (0.0-4.0) % Baso % (Auto) 0.3 (0.2-1.2) % Add Manual Diff Neutrophils % (Manual) (50-80) % Band Neutrophils % (0-6) % Lymphocytes % (Manual) (25-50) % Monocytes % (Manual) (2-11) % Eosinophils % (Manual) (0-4) % Platelet Estimate PT (9.6-11.4) SEC INR (2.0-3.5) Sodium 138 (136-145) mmol/L Potassium 3.5 (3.5-5.1) mmol/L Chloride 103 (98-107) mmol/L Carbon Dioxide 25 (21-32) mmol/L Anion Gap 13.5 (10-20) mmol/L BUN 16 (7-18) mg/dL Creatinine 1.0 (0.55-1.02) mg/dL Est Cr Clr Drug Dosing 38.10 Estimated GFR (MDRD) 53 Glucose 101 (74-106) mg/dL POC Glucose (74-106) mg/dL Lactic Acid (0.4-2.0) mmol/L Calcium 7.9 L (8.5-10.1) mg/dL Corrected Calcium 8.78 (8.5-10.1) mg/dL Phosphorus (2.6-4.7) mg/dL Magnesium (1.8-2.4) mg/dL Total Bilirubin 0.4 (0.2-1.0) mg/dL AST 77 H (15-37) U/L ALT 47 (14-59) U/L Alkaline Phosphatase 46 (46-116) U/L Troponin I (<=0.056) ng/mL Total Protein 6.5 (6.4-8.2) g/dL Albumin 2.9 L (3.4-5.0) g/dL Globulin 3.6 Albumin/Globulin Ratio 0.81 TSH, Ultra Sensitive (0.358-3.74) uIU/mL Result Diagrams: 12/27/17 06:48 12/27/17 06:48 Problem List Initiated/Reviewed/Updated: Yes Orders Last 24hrs: Active Orders 24 hr Category Date Time Status Patient Status [ADT] Routine ADT 12/26/17 23:36 Active Accu Check [Blood Glucose Check, Bedside] [RC] 07,17 Care 12/27/17 05:48 Active Oxygen Therapy [RC] .PRN Care 12/26/17 23:56 Active Up With Assistance [RC] ASDIRECTED Care 12/26/17 23:56 Active VTE/DVT Education [RC] .PRN Care 12/26/17 23:56 Active Vital Signs [RC] 06,10,14,18,22,02 Care 12/26/17 23:56 Active [employer] Diet [DIET] Diet 12/27/17 Breakfast Active Chest 1V Frontal [CR] Stat Exams 12/26/17 22:11 Taken CBC W/O DIFF,HEMOGRAM [HEME] Q3D Lab 12/28/17 07:00 Ordered CBC W/O DIFF,HEMOGRAM [HEME] Q3D Lab 12/31/17 07:00 Ordered CBC W/O DIFF,HEMOGRAM [HEME] Q3D Lab 01/03/18 07:00 Ordered CBC W/O DIFF,HEMOGRAM [HEME] Q3D Lab 01/06/18 07:00 Ordered CBC W/O DIFF,HEMOGRAM [HEME] Q3D Lab 01/09/18 07:00 Ordered CBC W/O DIFF,HEMOGRAM [HEME] Q3D Lab 01/12/18 07:00 Ordered CBC W/O DIFF,HEMOGRAM [HEME] Q3D Lab 01/15/18 07:00 Ordered CULTURE BLOOD [BC] Stat Lab 12/26/17 22:40 Received CULTURE BLOOD [BC] Stat Lab 12/26/17 22:45 Received Acetaminophen [Tylenol] Med 12/27/17 00:43 Active 650 mg PO Q4H PRN Advanced Joint Relief Med 12/27/17 08:00 Pending 1 tab PO DAILY Ascorbic Acid [Vitamin C] Med 12/27/17 08:00 Active 1,000 mg PO DAILY Aspirin [Halfprin] Med 12/27/17 08:00 Active 81 mg PO DAILY Calcium Carbonate/Vitamin D3 [Calcium Carbonate/Vitamin Med 12/27/17 08:00 Active D 1250 MG-200 Unit] 1 tab PO DAILY Cholecalciferol (Vitamin D3) [Vitamin D3] Med 12/27/17 08:00 Active 600 units PO DAILY Ciprofloxacin in D5W [Cipro in D5W 400 MG/200 ML] 400 Med 12/26/17 22:45 Active mg Premix Bag 1 bag IV Q12H Co Enzyme Med 12/27/17 08:00 Pending 1 tab PO DAILY Coconut Oil [Coconut Oil] Med 12/27/17 08:00 Pending 1,000 mg PO BID Dextran 70/Hypromellose/PF [Tears Naturale Free] Med 12/27/17 05:44 Active 1 each EYEBOTH ASDIRECTED PRN Donepezil [Aricept] Med 12/27/17 20:00 Active 5 mg PO BEDTIME Enoxaparin [Lovenox] Med 12/27/17 08:00 Active 40 mg SUBCUT DAILY Hydrochlorothiazide Med 12/27/17 08:00 Active 12.5 mg PO DAILY Levothyroxine Med 12/28/17 07:00 Active 125 mcg PO ACBREAKFAST Lisinopril [Prinivil] Med 12/27/17 08:00 Active 10 mg PO DAILY Multivitamins w-Iron/Ca/FA/Min [Thera M Plus] Med 12/27/17 08:00 Active 2 tab PO BID Sodium Chloride 0.9% [Normal Saline] 1,000 ml Med 12/26/17 23:45 Active IV ASDIRECTED Sodium Chloride 0.9% [Saline Flush] Med 12/26/17 22:11 Active 10 ml FLUSH ASDIRECTED PRN Zinc Gluconate [Zinc] Med 12/27/17 08:00 Active 50 mg PO DAILY Blood Culture x2 Reflex Set [OM.PC] Stat Oth 12/26/17 22:12 Ordered Peripheral IV Insertion Adult [OM.PC] Routine Oth 12/26/17 22:12 Ordered Code Status [Resuscitation Status] Stat Resus Stat 12/27/17 00:14 Ordered Medication Orders Acetaminophen (Tylenol) 650 mg PO Q4H PRN PRN Reason: Pain/Fever Artificial Tears (Tears Naturale Free) 1 each EYEBOTH ASDIRECTED PRN PRN Reason: Dry Eyes Ascorbic Acid (Vitamin C) 1,000 mg PO DAILY [facility] Last Admin: 12/27/17 08:09 Dose: 1,000 mg Aspirin (Halfprin) 81 mg PO DAILY [facility] Last Admin: 12/27/17 08:09 Dose: 81 mg Calcium Carbonate (Calcium Carbonate/Vitamin D 1250 Mg-200 Unit) 1 tab PO DAILY [facility] Cholecalciferol (Vitamin D3) 600 units PO DAILY [facility] Last Admin: 12/27/17 08:09 Dose: 600 units Donepezil HCl (Aricept) 5 mg PO BEDTIME [facility] Enoxaparin Sodium (Lovenox) 40 mg SUBCUT DAILY [facility] Last Admin: 12/27/17 08:03 Dose: 40 mg Hydrochlorothiazide (Hydrochlorothiazide) 12.5 mg PO DAILY [facility] Last Admin: 12/27/17 08:09 Dose: 12.5 mg Ciprofloxacin/Dextrose 400 mg/ (Premix) 200 mls @ 200 mls/hr IV Q12H [facility] Last Admin: 12/26/17 22:55 Dose: 200 mls/hr Sodium Chloride (Normal Saline) 1,000 mls @ 100 mls/hr IV ASDIRECTED [facility] Last Admin: 12/27/17 01:46 Dose: 100 mls/hr Levothyroxine Sodium (Levothyroxine) 125 mcg PO ACBREAKFAST [facility] Lisinopril (Prinivil) 10 mg PO DAILY [facility] Last Admin: 12/27/17 08:08 Dose: 10 mg Multivitamins/Minerals (Thera M Plus) 2 tab PO BID [facility] Last Admin: 12/27/17 08:08 Dose: 2 tab Non-Formulary Medication (Advanced Joint Relief) 1 tab PO DAILY [facility] Non-Formulary Medication (Co Enzyme) 1 tab PO DAILY [facility] Non-Formulary Medication (Coconut Oil [Coconut Oil]) 1,000 mg PO BID [facility] Sodium Chloride (Saline Flush) 10 ml FLUSH ASDIRECTED PRN PRN Reason: Keep Vein Open Zinc Gluconate (Zinc) 50 mg PO DAILY [facility] Last Admin: 12/27/17 08:09 Dose: 50 mg
[2017-12-27] MEDS: Calcium Carbonate/Vitamin D3 1250 MG-200 Unit Tab PO SCH (10:15)
[2017-12-27] MEDS: Ciprofloxacin in D5W 400 MG in Premix Bag 1 BAG IV SCH ×2 (10:16)
[2017-12-27] MEDS ORDERED: Donepezil 5 MG Tab PO SCH (20:00)
[2017-12-27] MEDS: Ciprofloxacin 500 MG Tab PO SCH (20:10)
[2017-12-28] MEDS: Sodium Chloride 0.9% 1,000 ML IV SCH (00:08)
[2017-12-28] MEDS ORDERED: Melatonin 3 MG Tab PO STA (00:56)
[2017-12-28] MEDS ORDERED: Haloperidol Lactate 5 MG/ML SDV IV STA (03:25)
--- NOTE | 2017-12-28 03:30 | PCM.SN ---
- Free Text/Narrative Note: Called by nursing due to patient behavior overnight. Was having trouble falling asleep so had ordered melatonin. She then fell asleep without this but later awoke and has been agitated. She is verbally aggressive and has also been up and out of her room for most of the night. She is going into other patient's rooms and striking at staff as well. Medications are indicated given she is both a danger to herself and to others. Nursing staff did call the patient's to see if he could talk with her and calm her down; however, he preferred we go ahead and given her some medication to help with this. She has had increased hallucinations with benzodiazepines in the past. Nursing states that she will not take PO at this time and spit out the melatonin when they eventually did try to give that to her. Therefore, the best option is haldol. Will give a low starting dose IV and then also have her on telemetry. No prior prolonged QTc but she is now on aricept and ciprofloxacin. As above, she is currently a danger to both herself and others so medications are warranted for management. Orders placed. Nursing to update me on behaviors as needed.
[2017-12-28] MEDS ORDERED: Haloperidol Lactate 5 MG/ML SDV IV ONE (04:45)
[2017-12-28] MEDS ORDERED: Levothyroxine 125 MCG Tab PO SCH (07:00)
[2017-12-28] MEDS: Ciprofloxacin 500 MG Tab PO SCH (07:46)
[2017-12-28] MEDS: Calcium Carbonate/Vitamin D3 1250 MG-200 Unit Tab PO SCH (07:46)
[2017-12-28] MEDS: Aspirin 81 MG Tab.EC PO SCH (07:46)
[2017-12-28] MEDS: Hydrochlorothiazide 12.5 MG Cap PO SCH (07:47)
[2017-12-28] MEDS: Lisinopril 10 MG Tab PO SCH (07:47)
[2017-12-28] MEDS: Enoxaparin 40 MG/0.4 ML Syringe SUBCUT SCH (07:48)
[2017-12-28] MEDS: Multivitamins with Iron/Calcium/Folic Acid/Minerals Tab PO SCH (07:49)
[2017-12-28] MEDS: Ascorbic Acid 500 MG Tab PO SCH (07:49)
[2017-12-28] MEDS: Cholecalciferol (Vitamin D3) 400 Unit Tab PO SCH (07:50)
[2017-12-28] MEDS: Zinc (Zinc Gluconate) 50 MG Tab PO SCH (07:51)
[2017-12-28 08:56] VITALS: BP 170/74
--- NOTE | 2017-12-28 09:04 | PN ---
Progress Note for POOJA HOANG Date: 12/28/2017 Room #: VM.218 SUBJECTIVE: The patient is feeling better this morning, stronger, more back to her baseline. During the night, she was noted to be quite confused. Did need to receive a dose of Haldol to help with behaviors that were unsettling for the patient. Otherwise, the patient denies any problems with pain right now. Did visit with about if he feels comfortable, taking her home with current state of health, and he does. OBJECTIVE: Vital Signs: Her temperature is 36.7, pulse is 56, blood pressure had been 167/78, respiratory rate 18, and saturations 98%. General: She is alert. Pleasant to visit with. She does recognize me. Heart: Regular rate and rhythm, without murmurs or bruits. Lungs: Clear to auscultation. Back: No CVA tenderness. LABORATORY DATA: Her white blood cell count was 7.8, hemoglobin 13.0, and platelets 242. Urine culture is just growing mixed lópez. IMPRESSION: 1. Urinary tract infection. 2. Cognitive dysfunction. 3. Alzheimer's. 4. Type 2 diabetes mellitus. 5. Hypertension. PLAN: The patient's does feel comfortable taking her home. Did contemplate if we should start her on Risperdal right now, but opted not to right now. The patient does have an appointment tomorrow in the clinic to see me, which she is told to keep and we will continue same medications. We will also need to reassess her blood pressure tomorrow as well. We can stop her Lovenox as she has been up ambulating well. GM12/28/2017 08:23:04 MODL: 12/28/2017 08:58:49 /[id number]
--- NOTE | 2017-12-28 14:45 | DISCH ---
PRIMARY DIAGNOSES: 1. Urinary tract infection. 2. Cognitive dysfunction worsening with behavior disturbances. 3. Hallucinations. 4. Type 2 diabetes mellitus. 5. Hypertension. 6. Hypothyroidism. SUMMARY OF ADMIT HISTORY AND PHYSICAL: The patient is an 82-year-old female, who had returned again to the emergency room with increased confusion. She had been seen the day prior with noted bladder infection. She was started on Cipro for UTI. Urine culture was obtained. She was chilled, weak, basically could not stand. She does have a history of dementia and she recently was started on Aricept. She has had initially no nausea or vomiting. When she presented to the emergency room, her temperature is 36.9, pulse 50, respirations 18, blood pressure is 116/50. Her white blood cell count has been 9.1, hemoglobin 12.5, platelets are 199 with 86 segs, 7 bands, 4 lymphocytes. Sodium 133, potassium 3.7, creatinine 1.1, BUN 21, lactic acid normal. Her phosphorus 2.5, magnesium 2.1. AST 58, ALT 42. TSH was 4.66, just mildly elevated. Lactic acid 0.7. Troponin less than 0.017. SUMMARY OF HOSPITAL COURSE: The patient was admitted to acute care, placed on IV Cipro. Gave her some IV fluids for hydration. Mental status was carefully monitored. To note, she has had a chest x-ray done, which was negative on 12/26. By next morning, summary of hospital course, she was eating better. She was switched to oral Cipro as it is just as efficacious as IV. Her white blood cell count had improved to 7.5 with 72 segs, 14 lymphocytes. Electrolytes had improved with creatinine 1.0. GFR had improved up to 53 from 48 the day previously. Lactic acid level is not going to be checked. AST has gone up slightly to 77. 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 It is noted that her blood pressure did go up to 200/100. She was not having any problems with chest pain. She was drinking and eating well. It is felt that she was safe to be discharged home. MEDICATIONS AT DISCHARGE: Will be aspirin 81 mg 1 pill a day, zinc 50 mg 1 pill daily, Similasan eye drops 1 drop as directed, Coconut Oil 1000 mg twice a day, coenzyme Q 1 pill daily, vitamin D 600 mg tablet daily ?, calcium with vitamin D 1 daily, vitamin C 1000 mg daily, Joint Relief 1 pill daily, lisinopril/hydrochlorothiazide 10/12.5 one pill daily, levothyroxine 125 mcg 1 pill daily, Aricept 10 mg 1 pill at bedtime, hair formula tablet 2 pills twice a day. The patient will keep her appointment tomorrow with me. We will consider if she needs to increase the dose of her Aricept yet and may need addition of something for mood stabilizer such as Risperdal and also questions if patient is able to continue in her home environment versus if she needs care at a [facility]. At the time of discharge, she is full code level 1. GM12/28/2017 08:28:26 MODL: 12/28/2017 09:06:19 /[id number]
== END 2017-12-28 09:30 | disposition home or self-care (01) | DRG 690 ==
LOC: VM.ED 21:54 → UNDOADMIN 23:35 → VM.MS 23:35
PROVIDERS: ADMIT Family Medicine; ATTEND Family Medicine
DX: N39.0 Urinary tract infection, site not specified (principal); R44.3 Hallucinations, unspecified; E11.9 Type 2 diabetes mellitus without complications; I48.91 Unspecified atrial fibrillation; K59.09 Other constipation; R32 Unspecified urinary incontinence; N39.3 Stress incontinence (female) (male); E78.5 Hyperlipidemia, unspecified; I48.0 Paroxysmal atrial fibrillation; I34.0 Nonrheumatic mitral (valve) insufficiency; G30.9 Alzheimer's disease, unspecified; F02.80 Dementia in other diseases classified elsewhere, unspecified severity, without behavioral disturbance, psychotic disturbance, mood disturbance, and anxiety; E03.9 Hypothyroidism, unspecified; I10 Essential (primary) hypertension; I25.10 Atherosclerotic heart disease of native coronary artery without angina pectoris; M06.9 Rheumatoid arthritis, unspecified; M19.042 Primary osteoarthritis, left hand; M19.041 Primary osteoarthritis, right hand; Z79.899 Other long term (current) drug therapy; Z79.82 Long term (current) use of aspirin
CPT/HCPCS: 36415; 71045; 80053; 82962; 83605; 83735; 84100; 84443; 84484; 85025; 85027; 85610; 87040; 96365; 99285; A9270-GY; J0744; J1630; J1650; J7030

== ENCOUNTER 2018-04-16 09:28 | Emergency (ER) | payer MEDICARE, OTHER ==
--- NOTE | 2018-04-16 09:33 | EDM.PDOC ---
ED HPI GENERAL MEDICAL PROBLEM - General Chief Complaint: General Stated Complaint: Fall; Right rib pain Time Seen by Provider: 04/16/18 09:31 Source of Information: Reports: Patient, Family, RN, RN Notes Reviewed History Limitations: Reports: No Limitations - History of Present Illness INITIAL COMMENTS - FREE TEXT/NARRATIVE: Patient presents to the ED at [facility] complaining of right lower rib pain after she fell yesterday while pruning [place] bushes. Patient states she got her feet/legs caught up in thick brush when she fell. She states she fell on her right side. She denies any LOC. No head injury. She states it is hard to take a deep breath 2/2 pain. Denies any back or neck pain. Otherwise, no other symptoms. Onset Date: 04/15/18 Right Chest Pain Score (Numeric/FACES): 8 - Related Data Allergies Allergy/AdvReac Type Severity Reaction Status Date / Time soy AdvReac Nausea Verified 12/27/17 13:39 Home Meds: Home Meds Advanced Joint Relief 1 cap PO DAILY 09/05/17 [History] Ascorbic Acid [Vitamin C] 1,000 mg PO DAILY 09/05/17 [History] Aspirin [Halfprin] 81 mg PO DAILY 09/05/17 [History] Calcium Carb/D3/Magnesium/Zinc [Jdwhklq-Xuq-Hyhi-Vit D] 1 tab PO DAILY 09/05/17 [History] Cholecalciferol (Vitamin D3) [Vitamin D3] 600 mg PO DAILY 09/05/17 [History] Co Enzyme 1 cap PO DAILY 09/05/17 [History] Coconut Oil 1,000 mg PO BID 09/05/17 [History] Similasan 1 drop EYEBOTH ASDIRECTED PRN 09/05/17 [History] Zinc 50 mg PO DAILY 09/05/17 [History] Donepezil [Aricept] 5 mg PO BEDTIME 12/25/17 [History] Levothyroxine Sodium [Synthroid] 125 mcg PO DAILY 12/25/17 [History] Lisinopril/Hydrochlorothiazide [Lisinopril-Hctz 10-12.5 mg Tab] 1 tab PO DAILY 12/25/17 [History] Mv,Iron,Min/Folic Acid/Biotin [Hair Formula Tablet] 2 tab PO BID 12/27/17 [ History] Past Medical History HEENT History: Reports: Cataract Cardiovascular History: Reports: Afib Other Cardiovascular History: hx of afib Respiratory History: Reports: None Gastrointestinal History: Reports: Chronic Constipation Genitourinary History: Reports: Urinary Incontinence 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 Other Psychiatric History: forgetful @ times Endocrine/Metabolic History: Reports: Diabetes, Type II, Hypothyroidism - Infectious Disease History Infectious Disease History: Reports: Chicken Pox, Measles - Past Surgical History HEENT Surgical History: Reports: Other (See Below) Other HEENT Surgeries/Procedures: tonsillectomy GI Surgical History: Reports: Appendectomy, Cholecystectomy, Colonoscopy Social & Family History - Family History Family Medical History: Noncontributory - Caffeine Use Caffeine Use: Reports: Coffee, Tea ED ROS GENERAL - Review of Systems Review Of Systems: See Below Constitutional: Denies: Fever, Chills, Weakness Respiratory: Reports: Pleuritic Chest Pain. Denies: Shortness of Breath, Cough Cardiovascular: Denies: Chest Pain, Palpitations Musculoskeletal: Reports: Muscle Pain, Muscle Stiffness Skin: Reports: No Symptoms Neurological: Reports: No Symptoms ED EXAM, GENERAL - Physical Exam Exam: See Below Exam Limited By: Other (has history of dementia) General Appearance: Alert, No Apparent Distress Head: Atraumatic, Normocephalic Respiratory/Chest: No Respiratory Distress, Lungs Clear, Normal Breath Sounds, Other (right lateral lower chest wall tender to palpation; no bruising or rib deformity; lung sounds normal in this area) Peripheral Pulses: 2+: Radial (L), Radial (R) GI/Abdominal: Normal Bowel Sounds, Soft, Non-Tender Neurological: Alert, Disoriented (2/2 dementia) Skin Exam: Warm, Dry, Intact, Normal Color Course - Vital Signs Last Recorded V/S: Last Vital Signs Temp 37.1 C 04/16/18 09:35 Pulse 57 L 04/16/18 09:35 Resp 16 04/16/18 09:35 BP 128/72 04/16/18 09:35 Pulse Ox 99 04/16/18 09:35 - Orders/Labs/Meds Orders: Active Orders 24 hr Category Date Time Status Ribs 2V w Chest Rt [CR] Stat Exams 04/16/18 09:31 Taken - Radiology Interpretation Free Text/Narrative:: Ribs Right w/PA chest: No acute cardiopulmonary findings or radiographically evident rib fracture See scanned report in EMR Departure - Departure Time of Disposition: 10:34 Disposition: Home, Self-Care 01 Condition: Good Clinical Impression: Contusion of rib on right side Qualifiers: Encounter type: initial encounter Qualified Code(s): S20.211A - Contusion of right front wall of thorax, initial encounter - Discharge Information *PRESCRIPTION DRUG MONITORING PROGRAM REVIEWED*: Not Applicable *COPY OF PRESCRIPTION DRUG MONITORING REPORT IN PATIENT JESS: Not Applicable Instructions: Rib Contusion, Chest Contusion, Adult Forms: ED Department Discharge Additional Instructions: 1. Stay well hydrated and rest 2. Take Tylenol as needed for pain 3. Use a heating pad to the right ribs to help with discomfort. 4. Need to deep breath several times an hour to help keep lungs expanded 5. See your Primary as symptoms warrant - Problem List Review Problem List Initiated/Reviewed/Updated: Yes - My Orders Last 24 Hours: My Active Orders 04/16/18 09:31 Ribs 2V w Chest Rt [CR] Stat - Assessment/Plan Last 24 Hours: My Active Orders 04/16/18 09:31 Ribs 2V w Chest Rt [CR] Stat Assessment:: Rib contusion 2/2 fall Plan: Discussed xray findings with patient and . No acute fractures seen on plain film. Recommend heating pad to site of pain. May take OTC Tylenol as needed. Need to keep taking deep breaths to prevent pneumonia or other complications. See PCP as symptoms warrant.
[2018-04-16 10:23] VITALS: BP 128/72
== END 2018-04-16 10:45 | disposition home or self-care (01) ==
LOC: VM.ED 09:28
DX: S20.211A Contusion of right front wall of thorax, initial encounter (principal); E11.9 Type 2 diabetes mellitus without complications; E03.9 Hypothyroidism, unspecified; Z88.8 Allergy status to other drugs, medicaments and biological substances; Z79.899 Other long term (current) drug therapy; Z79.82 Long term (current) use of aspirin; W18.39XA Other fall on same level, initial encounter
CPT/HCPCS: 71101-RT; 99283

== ENCOUNTER 2019-01-20 04:36 | Emergency (ER) | payer MEDICARE, OTHER ==
[2019-01-20] MEDS ORDERED: Sodium Chloride 0.9% 10 ML Syringe FLUSH PRN (04:44)
[2019-01-20 05:09] VITALS: BP 183/77
--- NOTE | 2019-01-20 05:19 | EDM.PDOC ---
ED HPI GENERAL MEDICAL PROBLEM - General Chief Complaint: Abdominal Pain Stated Complaint: abdominal pain Time Seen by Provider: 01/20/19 05:13 Source of Information: Reports: Patient History Limitations: Reports: No Limitations - History of Present Illness INITIAL COMMENTS - FREE TEXT/NARRATIVE: Pt. presents to ER with complaints of L upper quadrant abdominal pain. Pt. told her that she was having R upper quadrant abdominal pain last night but now it is located on the L side. She states that she did not sleep during the night. She states that she had a somewhat loose BM yesterday. Denies any fever or chills. She states that the discomfort in intermittent. She is absent her gallbladder and appendix. Denies any chest pain or shortness of breath. No nausea or vomiting. Denies any recent travel. No interaction with ill contacts. She states that the pain at this time localizes in the L upper quadrant and does not radiate elsewhere. Pt. has a history of dementia and looks to her often for answers. She did not recall what she had any abdominal pain yesterday last night. Onset: Today Onset Date: 01/19/19 Location: Reports: Abdomen Quality: Reports: Ache Severity: Moderate Abdominal Pain Score (Numeric/FACES): 6 - Related Data Allergies Allergy/AdvReac Type Severity Reaction Status Date / Time soy AdvReac Nausea Verified 01/20/19 05:09 Home Meds: Home Meds Advanced Joint Relief 1 cap PO DAILY 09/05/17 [History] Ascorbic Acid [Vitamin C] 1,000 mg PO DAILY 09/05/17 [History] Aspirin [Halfprin] 81 mg PO DAILY 09/05/17 [History] Calcium Carb/D3/Magnesium/Zinc [Nkjjciy-Efj-Pmww-Vit D] 1 tab PO DAILY 09/05/17 [History] Cholecalciferol (Vitamin D3) [Vitamin D3] 600 mg PO DAILY 09/05/17 [History] Co Enzyme 1 cap PO DAILY 09/05/17 [History] Coconut Oil 1,000 mg PO BID 09/05/17 [History] Similasan 1 drop EYEBOTH ASDIRECTED PRN 09/05/17 [History] Zinc 50 mg PO DAILY 09/05/17 [History] Donepezil [Aricept] 10 mg PO BEDTIME 12/25/17 [History] Levothyroxine Sodium [Synthroid] 125 mcg PO DAILY 12/25/17 [History] Lisinopril/Hydrochlorothiazide [Lisinopril-Hctz 10-12.5 mg Tab] 1 tab PO DAILY 12/25/17 [History] Mv,Iron,Min/Folic Acid/Biotin [Hair Formula Tablet] 2 tab PO BID 12/27/17 [ History] Ipratropium [Atrovent 0.06% Nasal [place]] 2 spray NASBOTH TID 01/20/19 [History] Melatonin 1 tab PO BEDTIME 01/20/19 [History] Memantine HCl 1 tab PO BID 01/20/19 [History] Simvastatin 10 mg PO BEDTIME 01/20/19 [History] Triamcinolone Acetonide [Triamcinolone Acetonide 0.5%] 1 applic TOP TID PRN [History] Past Medical History HEENT History: Reports: Cataract Cardiovascular History: Reports: Afib Other Cardiovascular History: hx of afib Respiratory History: Reports: None Gastrointestinal History: Reports: Chronic Constipation Genitourinary History: Reports: Urinary Incontinence 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 Other Psychiatric History: forgetful @ times Endocrine/Metabolic History: Reports: Diabetes, Type II, Hypothyroidism - Infectious Disease History Infectious Disease History: Reports: Chicken Pox, Measles - Past Surgical History HEENT Surgical History: Reports: Other (See Below) Other HEENT Surgeries/Procedures: tonsillectomy GI Surgical History: Reports: Appendectomy, Cholecystectomy, Colonoscopy Social & Family History - Family History Family Medical History: Noncontributory - Caffeine Use Caffeine Use: Reports: Coffee, Tea ED ROS GENERAL - Review of Systems Review Of Systems: See Below Constitutional: Reports: No Symptoms HEENT: Reports: No Symptoms Respiratory: Reports: No Symptoms Cardiovascular: Reports: No Symptoms Endocrine: Reports: No Symptoms GI/Abdominal: Reports: Abdominal Pain. Denies: Black Stool, Bloody Stool, Diarrhea, Hematemesis, Hematochezia, Melena : Reports: No Symptoms Musculoskeletal: Reports: No Symptoms Skin: Reports: No Symptoms Neurological: Reports: No Symptoms Psychiatric: Reports: No Symptoms Hematologic/Lymphatic: Reports: No Symptoms Immunologic: Reports: No Symptoms ED EXAM, GENERAL - Physical Exam Exam: See Below Exam Limited By: No Limitations General Appearance: Alert, WD/WN, No Apparent Distress Throat/Mouth: Normal Inspection, Normal Lips, Normal Teeth, Normal Gums, Normal Oropharynx, Normal Voice, No Airway Compromise Head: Atraumatic, Normocephalic Neck: Normal Inspection, Supple, Non-Tender, Full Range of Motion Respiratory/Chest: No Respiratory Distress, Lungs Clear, Normal Breath Sounds, No Accessory Muscle Use, Chest Non-Tender Cardiovascular: Normal Peripheral Pulses, Regular Rate, Rhythm, No Edema, No JVD , No Murmur, No Rub Peripheral Pulses: 4+: Radial (L) GI/Abdominal: Normal Bowel Sounds, Soft, Non-Tender, No Organomegaly, No Distention, No Mass, Pelvis Stable (Female) Exam: Deferred Rectal (Female) Exam: Deferred Back Exam: Normal Inspection, Full Range of Motion Extremities: Normal Inspection, Normal Range of Motion, Non-Tender, No Pedal Edema, Normal Capillary Refill Neurological: Alert, Oriented, CN II-XII Intact, Normal Cognition, Normal Gait, Normal Reflexes, No Motor/Sensory Deficits Psychiatric: Normal Affect, Normal Mood Skin Exam: Warm, Dry, Intact, Normal Color, No Rash Course - Vital Signs Last Recorded V/S: Last Vital Signs Temp 36.6 C 01/20/19 05:08 Pulse 56 L 01/20/19 05:08 Resp 20 01/20/19 05:08 BP 183/77 H 01/20/19 05:08 Pulse Ox 98 01/20/19 05:08 - Orders/Labs/Meds Orders: Active Orders 24 hr Category Date Time Status Sodium Chloride 0.9% [Saline Flush] Med 01/20/19 04:44 Active 10 ml FLUSH ASDIRECTED PRN Peripheral IV Insertion Adult [OM.PC] Routine Oth 01/20/19 04:45 Ordered Medication Orders Sodium Chloride (Saline Flush) 10 ml FLUSH ASDIRECTED PRN PRN Reason: Keep Vein Open Labs: Laboratory Tests 01/20/19 01/20/19 01/20/19 Range/Units 04:54 04:54 04:54 WBC 6.9 (4.0-10.0) x10^3/uL RBC 3.77 L (4.00-5.50) x10^6/uL Hgb 12.3 (12.0-16.0) g/dL Hct 35.7 (33.0-47.0) % MCV 94.7 H (78.0-93.0) fL MCH 32.6 H (26.0-32.0) pg MCHC 34.5 (32.0-36.0) g/dL RDW Coeff of Dione 12.3 (10.0-15.0) % Plt Count 259 (130-400) x10^3/uL Neut % (Auto) 58.7 (50.0-80.0) % Lymph % (Auto) 27.1 (25.0-50.0) % Love % (Auto) 8.2 (2.0-11.0) % Eos % (Auto) 5.1 H (0.0-4.0) % Baso % (Auto) 0.9 (0.2-1.2) % PT 10.3 (10.0-12.8) SEC INR 0.9 L (2.0-3.5) Sodium 137 (136-145) mmol/L Potassium 4.3 (3.5-5.1) mmol/L Chloride 101 (98-107) mmol/L Carbon Dioxide 27 (21-32) mmol/L Anion Gap 13.3 (10-20) mmol/L BUN 30 H (7-18) mg/dL Creatinine 1.3 H (0.55-1.02) mg/dL Est Cr Clr Drug Dosing 28.81 mL/min Estimated GFR (MDRD) 39 Glucose 110 H (74-106) mg/dL Calcium 9.1 (8.5-10.1) mg/dL Corrected Calcium 9.34 (8.5-10.1) mg/dL Phosphorus 3.9 (2.6-4.7) mg/dL Magnesium 1.9 (1.8-2.4) mg/dL Total Bilirubin 0.5 (0.2-1.0) mg/dL AST 21 (15-37) U/L ALT 25 (14-59) U/L Alkaline Phosphatase 62 (46-116) U/L C-Reactive Protein 0.3 (<=0.9) mg/dL Total Protein 7.3 (6.4-8.2) g/dL Albumin 3.7 (3.4-5.0) g/dL Globulin 3.6 Albumin/Globulin Ratio 1.03 Urine Color (YELLOW) Urine Appearance (CLEAR) Urine pH (5.0-8.0) Ur Specific [place] Urine Protein (NEGATIVE) mg/dL Urine Glucose (UA) (NEGATIVE) mg/dL Urine Ketones (NEGATIVE) mg/dL Urine Occult Blood (NEGATIVE) Urine Nitrite (NEGATIVE) Urine Bilirubin (NEGATIVE) Urine Urobilinogen (0.2) EU/dL Ur Leukocyte Esterase (NEGATIVE) Urine RBC (NOT SEEN) /HPF Urine WBC (NOT SEEN) /HPF Ur Squamous Epith Cells (NEGATIVE) /HPF Urine Bacteria (NEGATIVE) /HPF Urine Mucus (NEGATIVE) /LPF 01/20/19 Range/Units 05:30 WBC (4.0-10.0) x10^3/uL RBC (4.00-5.50) x10^6/uL Hgb (12.0-16.0) g/dL Hct (33.0-47.0) % MCV (78.0-93.0) fL MCH (26.0-32.0) pg MCHC (32.0-36.0) g/dL RDW Coeff of Dione (10.0-15.0) % Plt Count (130-400) x10^3/uL Neut % (Auto) (50.0-80.0) % Lymph % (Auto) (25.0-50.0) % Love % (Auto) (2.0-11.0) % Eos % (Auto) (0.0-4.0) % Baso % (Auto) (0.2-1.2) % PT (10.0-12.8) SEC INR (2.0-3.5) Sodium (136-145) mmol/L Potassium (3.5-5.1) mmol/L Chloride (98-107) mmol/L Carbon Dioxide (21-32) mmol/L Anion Gap (10-20) mmol/L BUN (7-18) mg/dL Creatinine (0.55-1.02) mg/dL Est Cr Clr Drug Dosing mL/min Estimated GFR (MDRD) Glucose (74-106) mg/dL Calcium (8.5-10.1) mg/dL Corrected Calcium (8.5-10.1) mg/dL Phosphorus (2.6-4.7) mg/dL Magnesium (1.8-2.4) mg/dL Total Bilirubin (0.2-1.0) mg/dL AST (15-37) U/L ALT (14-59) U/L Alkaline Phosphatase (46-116) U/L C-Reactive Protein (<=0.9) mg/dL Total Protein (6.4-8.2) g/dL Albumin (3.4-5.0) g/dL Globulin Albumin/Globulin Ratio Urine Color Light yellow (YELLOW) Urine Appearance Slightly cloudy H (CLEAR) Urine pH 6.0 (5.0-8.0) Ur Specific [place] 1.015 Urine Protein Negative (NEGATIVE) mg/dL Urine Glucose (UA) Negative (NEGATIVE) mg/dL Urine Ketones Negative (NEGATIVE) mg/dL Urine Occult Blood Negative (NEGATIVE) Urine Nitrite Negative (NEGATIVE) Urine Bilirubin Negative (NEGATIVE) Urine Urobilinogen 0.2 (0.2) EU/dL Ur Leukocyte Esterase Moderate H (NEGATIVE) Urine RBC Not seen (NOT SEEN) /HPF Urine WBC 5-10 H (NOT SEEN) /HPF Ur Squamous Epith Cells Few H (NEGATIVE) /HPF Urine Bacteria Rare (NEGATIVE) /HPF Urine Mucus Not seen (NEGATIVE) /LPF Meds: Medications Generic Name Dose Route Start Last Admin Trade Name Freq PRN Reason Stop Dose Admin Sodium Chloride 10 ml 01/20/19 04:44 Saline Flush FLUSH ASDIRECTED PRN Keep Vein Open Discontinued Medications Generic Name Dose Route Start Last Admin Trade Name Freq PRN Reason Stop Dose Admin Trimethoprim/Sulfamethoxazole 2 packet 01/20/19 05:43 Take Home: Sulfameth/Trimet 800-160mg, 2 Pack PO 01/20/19 05:44 ONETIME ONE Departure - Departure Time of Disposition: 05:50 Disposition: Home, Self-Care 01 Condition: Good Clinical Impression: UTI (urinary tract infection) Qualifiers: Urinary tract infection type: acute cystitis Hematuria presence: with hematuria Qualified Code(s): N30.01 - Acute cystitis with hematuria - Discharge Information Instructions: Urinary Tract Infection, Adult Referrals: Susan Ford MD [Primary Care Provider] - Forms: ED Department Discharge Additional Instructions: Bactrim DS 1 twice daily for 5 days Drink plenty of fluids Follow-up in clinic in 7-10 days If the discomfort is getting worse, return to ER. - My Orders Last 24 Hours: My Active Orders 01/20/19 04:44 Sodium Chloride 0.9% [Saline Flush] 10 ml FLUSH ASDIRECTED PRN 01/20/19 04:45 Peripheral IV Insertion Adult [OM.PC] Routine - Assessment/Plan Last 24 Hours: My Active Orders 01/20/19 04:44 Sodium Chloride 0.9% [Saline Flush] 10 ml FLUSH ASDIRECTED PRN 01/20/19 04:45 Peripheral IV Insertion Adult [OM.PC] Routine Plan: Bactrim DS 1 twice daily for 5 days Drink plenty of fluids Follow-up in clinic in 7-10 days If the discomfort is getting worse, return to ER.
[2019-01-20 05:36] LABS: ANION GAP 13.3 mmol/L (10-20)
[2019-01-20] MEDS ORDERED: Take Home: Sulfamethoxazole/Trimethoprim 800-160 MG Tab, 2 Tab Pack PO ONE (05:43)
== END 2019-01-20 06:00 | disposition home or self-care (01) ==
LOC: VM.ED 04:36
DX: N30.01 Acute cystitis with hematuria (principal); I48.91 Unspecified atrial fibrillation; E11.9 Type 2 diabetes mellitus without complications; E03.9 Hypothyroidism, unspecified; Z79.899 Other long term (current) drug therapy
CPT/HCPCS: 80053; 81001; 83735; 84100; 85025; 85610; 86140; 99284; 99284-GF; A9270-GY

== ENCOUNTER 2019-12-28 09:12 | Emergency (ER) | payer MEDICARE, OTHER ==
[2019-12-28 09:39] VITALS: BP 123/51; PULSE 54
--- NOTE | 2019-12-28 10:13 | CR ---
[id number] RAD/RAD Knee Left 3V EXAM: 3 VIEWS LEFT KNEE. INDICATION: KNEE PAIN. COMPARISON: None. DISCUSSION: No fracture, dislocation or other acute osseous abnormality. Advanced tricompartmental osteoarthritis of the left knee including loss of joint space, osteophytosis and subchondral sclerosis. Moderate left knee joint effusion. IMPRESSION: 1. No definite acute osseous abnormalities. Advanced tricompartmental osteoarthritis of the left knee. Isaac Gordon DO 12/28/19 1012 Thank you for allowing us to participate in the care of your patient.
--- NOTE | 2019-12-28 10:55 | EDM.PDOC ---
ED HPI GENERAL MEDICAL PROBLEM - General Chief Complaint: Lower Extremity Injury/Pain Time Seen by Provider: 12/28/19 09:20 Source of Information: Reports: Patient History Limitations: Reports: No Limitations - History of Present Illness INITIAL COMMENTS - FREE TEXT/NARRATIVE: Pt. presents to ER with complaints of L knee pain. Pt. has severe dementia, so a majority of ROS gleaned from spouse. Pt. started complaining of pain several days ago. There was no trauma that he was aware of. She requires intensive monitoring, but potentially could have happened when she wasn't monitored in the bathroom, etc. states that the pain is worst with first step in the AM, and this AM, she was unable to stand or bear weight. He gave her some tylenol and brought her to ER shortly thereafter. On arrival to ER, pt. was unable to relate specifically where the pain was, and for a majority of the visit, reported that the pain was gone. states that the patient has a history of OA and had her R knee scoped several years ago. Onset Date: 12/25/19 Duration: Getting Worse Location: Reports: Lower Extremity, Left Quality: Reports: Ache Associated Symptoms: Denies: Fever/Chills - Related Data Allergies Allergy/AdvReac Type Severity Reaction Status Date / Time soy AdvReac Nausea Verified 12/28/19 09:28 Home Meds: Home Meds Advanced Joint Relief 1 cap PO DAILY 09/05/17 [History] Ascorbic Acid [Vitamin C] 1,000 mg PO DAILY 09/05/17 [History] Aspirin [Halfprin] 81 mg PO DAILY 09/05/17 [History] Calcium Carb/D3/Magnesium/Zinc [Dyxkaal-Ckk-Wlnt-Vit D] 1 tab PO DAILY 09/05/17 [History] Cholecalciferol (Vitamin D3) [Vitamin D3] 600 mg PO DAILY 09/05/17 [History] Co Enzyme 1 cap PO DAILY 09/05/17 [History] Coconut Oil 1,000 mg PO BID 09/05/17 [History] Similasan 1 drop EYEBOTH ASDIRECTED PRN 09/05/17 [History] Zinc 50 mg PO DAILY 09/05/17 [History] Donepezil [Aricept] 15 mg PO BEDTIME 12/25/17 [History] Levothyroxine Sodium [Synthroid] 125 mcg PO DAILY 12/25/17 [History] Lisinopril/Hydrochlorothiazide [Lisinopril-Hctz 10-12.5 mg Tab] 0.5 tab PO DAILY 12/25/17 [History] Mv,Iron,Mins/Folic Acid/Biotin [Hair Formula Tablet] 2 tab PO BID 12/27/17 [ History] Ipratropium [Atrovent 0.06% Nasal [place]] 2 spray NASBOTH TID 01/20/19 [History] Melatonin 3 mg PO BEDTIME 01/20/19 [History] Memantine HCl 10 mg PO BID 01/20/19 [History] Simvastatin 10 mg PO BEDTIME 01/20/19 [History] Triamcinolone Acetonide [Triamcinolone Acetonide 0.5%] 1 applic TOP TID PRN [History] Past Medical History HEENT History: Reports: Cataract Cardiovascular History: Reports: Afib Other Cardiovascular History: hx of afib Respiratory History: Reports: None Gastrointestinal History: Reports: Chronic Constipation Genitourinary History: Reports: Urinary Incontinence 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 Psychiatric History: Reports: Alzheimers Disease Other Psychiatric History: forgetful @ times Endocrine/Metabolic History: Reports: Diabetes, Type II, Hypothyroidism - Infectious Disease History Infectious Disease History: Reports: Chicken Pox, Measles - Past Surgical History HEENT Surgical History: Reports: Other (See Below) Other HEENT Surgeries/Procedures: tonsillectomy GI Surgical History: Reports: Appendectomy, Cholecystectomy, Colonoscopy Social & Family History - Family History Family Medical History: Noncontributory - Tobacco Use Smoking Status *Q: Never Smoker - Caffeine Use Caffeine Use: Reports: Coffee, Tea Review of Systems - Review of Systems Review Of Systems: Comprehensive ROS is negative, except as noted in HPI. ED EXAM, GENERAL - Physical Exam Exam: See Below Exam Limited By: No Limitations General Appearance: Alert, WD/WN, No Apparent Distress Extremities: Other (Pt. unable to bear weight and walk a short distance. Initially she denied pain, but later stated that it was located more on the lower anterior area of the knee. Possibly some mild swelling noted. No crepitus or deformity. CMS intact. Sina negative. Drawer test negative.) Course - Vital Signs Last Recorded V/S: Last Vital Signs Temp 36.6 C 12/28/19 09:15 Pulse 54 L 12/28/19 09:15 Resp 16 12/28/19 09:15 BP 123/51 L 12/28/19 09:15 Pulse Ox 99 12/28/19 09:15 - Orders/Labs/Meds Labs: Laboratory Tests 12/28/19 Range/Units 09:42 Uric Acid 4.9 (2.6-6.0) mg/dL C-Reactive Protein < 0.2 (<=0.9) mg/dL - Radiology Interpretation Free Text/Narrative:: osteoarthritis noted on radiographs. Departure - Departure Time of Disposition: 10:30 Disposition: Home, Self-Care 01 Clinical Impression: Knee pain, left, Osteoarthritis - Discharge Information Instructions: Joint Pain, [id number] Referrals: Susan Ford MD [Primary Care Provider] - Forms: ED Department Discharge Additional Instructions: Follow-up with Dr. Ford next week. Continue with the tylenol as needed for continued discomfort. Sepsis Event Note - Evaluation Sepsis Screening Result: No Definite Risk - Focused Exam Vital Signs: Vital Signs Temp Pulse Resp BP Pulse Ox 12/28/19 09:15 36.6 C 54 L 16 123/51 L 99 Date Exam was Performed: 12/28/19 Time Exam was Performed: 10:47 - Problem List Review Problem List Initiated/Reviewed/Updated: Yes - Assessment/Plan Plan: Uric acid and CRP were negative. She did have significant degenerative disease noted on x-ray. Advised to follow-up with Dr. Ford as needed. Continue tylenol as needed.
== END 2019-12-28 10:35 | disposition home or self-care (01) ==
LOC: VM.ED 09:12
DX: M17.12 Unilateral primary osteoarthritis, left knee (principal); I48.91 Unspecified atrial fibrillation; M06.9 Rheumatoid arthritis, unspecified; G30.9 Alzheimer's disease, unspecified; F02.80 Dementia in other diseases classified elsewhere, unspecified severity, without behavioral disturbance, psychotic disturbance, mood disturbance, and anxiety; E11.9 Type 2 diabetes mellitus without complications; E03.9 Hypothyroidism, unspecified; Z79.82 Long term (current) use of aspirin; Z79.899 Other long term (current) drug therapy; Z91.018 Allergy to other foods
CPT/HCPCS: 36415; 73562-LT; 84550; 86140; 99283-25; 99283-GF

== ENCOUNTER 2020-02-14 16:07 | Emergency (ER) | payer MEDICARE, OTHER ==
[2020-02-14] MEDS ORDERED: Sodium Chloride 0.9% 10 ML Syringe FLUSH PRN (16:10)
--- NOTE | 2020-02-14 16:25 | EDM.PDOC ---
ED HPI GENERAL MEDICAL PROBLEM - General Chief Complaint: General Time Seen by Provider: 02/14/20 16:10 Source of Information: Reports: EMS - History of Present Illness INITIAL COMMENTS - FREE TEXT/NARRATIVE: Meg is an 84 y/o female who is brought to the ER by EMS after she was found lying in a gravel lot near the [employer]. She lives at [facility] with her . She does have a history of dementia and has been known to get out of her apartment and wander off when her is gone. Her has dialysis this afternoon has been gone, so he was not watching her. She apparently tripped and fell on some gravel and then laid there about 25 minutes before the ambulance got here. On EMS arrival she was assisted up to the cart. Her only complaint on arrival to the ER is a scrape on her right forearm/elbow region. The incident was unwitnessed, patient had not been ill prior to the fall. - Related Data Allergies Allergy/AdvReac Type Severity Reaction Status Date / Time lorazepam [From Ativan] Allergy Cannot Verified 02/14/20 16:22 Remember soy AdvReac Nausea Verified 02/14/20 16:20 Home Meds: Home Meds Advanced [employer] Relief 1 cap PO DAILY 09/05/17 [History] Ascorbic Acid [Vitamin C] 1,000 mg PO DAILY 09/05/17 [History] Aspirin [Halfprin] 81 mg PO DAILY 09/05/17 [History] Calcium Carb/D3/Magnesium/Zinc [Sjeiycv-Wjt-Ebtw-Vit D] 1 tab PO DAILY 09/05/17 [History] Cholecalciferol (Vitamin D3) [Vitamin D3] 600 mg PO DAILY 09/05/17 [History] Co Enzyme 1 cap PO DAILY 09/05/17 [History] Coconut Oil 1,000 mg PO BID 09/05/17 [History] Similasan 1 drop EYEBOTH ASDIRECTED PRN 09/05/17 [History] Zinc 50 mg PO DAILY 09/05/17 [History] Donepezil [Aricept] 15 mg PO BEDTIME 12/25/17 [History] Levothyroxine Sodium [Synthroid] 125 mcg PO DAILY 12/25/17 [History] Lisinopril/Hydrochlorothiazide [Lisinopril-Hctz 10-12.5 mg Tab] 0.5 tab PO DAILY 12/25/17 [History] Mv,Iron,Mins/Folic Acid/Biotin [Hair Formula Tablet] 2 tab PO BID 12/27/17 [History] Ipratropium [Atrovent 0.06% Nasal [place]] 2 spray NASBOTH TID 01/20/19 [History] Melatonin 3 mg PO BEDTIME 01/20/19 [History] Memantine HCl 10 mg PO BID 01/20/19 [History] Simvastatin 10 mg PO BEDTIME 01/20/19 [History] Triamcinolone Acetonide [Triamcinolone Acetonide 0.5%] 1 applic TOP TID PRN 01/20/19 [History] Past Medical History HEENT History: Reports: Cataract Cardiovascular History: Reports: Afib Other Cardiovascular History: hx of afib Respiratory History: Reports: None Gastrointestinal History: Reports: Chronic Constipation Genitourinary History: Reports: Urinary Incontinence PROPOSAL SPECIALIST History: Reports: None Musculoskeletal History: Reports: RA Neurological History: Reports: Alzheimers Disease, Concussion, Other (See Below) Other Neuro History: Early Alzheimers. Psychiatric History: Reports: Alzheimers Disease Other Psychiatric History: forgetful @ times Endocrine/Metabolic History: Reports: Diabetes, Type II, Hypothyroidism - Infectious Disease History Infectious Disease History: Reports: Chicken Pox, Measles - Past Surgical History HEENT Surgical History: Reports: Other (See Below) Other HEENT Surgeries/Procedures: tonsillectomy GI Surgical History: Reports: Appendectomy, Cholecystectomy, Colonoscopy Social & Family History - Family History Family Medical History: Noncontributory - Caffeine Use Caffeine Use: Reports: Coffee, Tea Review of Systems - Review of Systems Review Of Systems: See Below (Patient is a confused due to dementia and ROS not accurate) Constitutional: Reports: No Symptoms Eyes: Reports: No Symptoms Ears: Reports: No Symptoms Nose: Reports: No Symptoms Mouth/Throat: Reports: No Symptoms Respiratory: Reports: No Symptoms Cardiovascular: Reports: No Symptoms GI/Abdominal: Reports: No Symptoms Genitourinary: Reports: No Symptoms Musculoskeletal: Reports: Arm Pain (right elbow/forearm) Skin: Reports: No Symptoms Neurological: Reports: Confusion Psychiatric: Reports: Confusion ED EXAM, GENERAL - Physical Exam Exam: See Below General Appearance: Alert, WD/WN, No Apparent Distress (Pleasantly confused elderly female. She is dressed appropriately and able to move around on the ER cart.) Eye Exam: Bilateral Eye: PERRL Ears: Normal External Exam, Normal Canal, Hearing Grossly Normal, Normal TMs Nose: Normal Inspection, Normal Mucosa Throat/Mouth: Normal Inspection, Normal Lips, Normal Teeth, Normal Oropharynx, Normal Voice Head: Atraumatic, Normocephalic Neck: Normal Inspection, Supple Respiratory/Chest: No Respiratory Distress, Lungs Clear Cardiovascular: Normal Peripheral Pulses, Regular Rate, Rhythm, No Edema, No Murmur GI/Abdominal: Normal Bowel Sounds, Soft, Non-Tender (Female) Exam: Deferred Rectal (Female) Exam: Deferred Back Exam: Normal Inspection Extremities: Normal Inspection, Normal Range of Motion, Non-Tender, Other (note small abrasion to right posterior forearm, [id number] knee braces on) Neurological: Alert, CN II-XII Intact, Memory Loss Remote Events, Memory Loss Recent Events Psychiatric: Normal Affect Skin Exam: Increased Warmth, Other (sweaty on arrival (due to heat outside)) Lymphatic: No Adenopathy EKG INTERPRETATION EKG Date: 02/14/20 Time: 16:56 Rhythm: NSR [place]: Normal P-Wave: Present QRS: Normal ST-T: Normal QT: Normal (404) Comparison: NA - No Prior EKG EKG Interpretation Comments: NSR Course - Vital Signs Text/Narrative:: The patient was seen by the ANALYTICAL LEAD. Labs and EKG ordered. No Xrays ordered and patient had normal ROM in all extremities. The abrasion to her right forearm was minor and did not require any dressing. 1650 Labs reviewed. Note BUN/Splunk Consultant elevated. Most likely due to being in the heat. NS 1 liter IV ordered. Patient remained stable. Her son arrived to the ER. Questions answered. Discharge instructions were given and the patient left the ER in stable condition. Last Recorded V/S: Last Vital Signs Temp 37.4 C 02/14/20 16:22 Pulse 90 02/14/20 16:22 Resp 16 02/14/20 16:22 BP 161/79 H 02/14/20 16:22 Pulse Ox 97 02/14/20 16:22 - Orders/Labs/Meds Orders: Active Orders 24 hr Category Date Time Status EKG Documentation Completion [RC] STAT Care 02/14/20 16:10 Active UA W/RUDY RFLX IF INDICATED [URIN] Stat Lab 07/10/20 16:10 Ordered Sodium Chloride 0.9% [Normal Saline] 1,000 ml Med 02/14/20 17:00 Active IV ONETIME Sodium Chloride 0.9% [Saline Flush] Med 02/14/20 16:10 Active 10 ml FLUSH ASDIRECTED PRN Saline Lock Insert [OM.PC] Stat Oth 02/14/20 16:10 Ordered Medication Orders Sodium Chloride (Normal Saline) 1,000 mls @ 999 mls/hr IV ONETIME ONE Stop: 02/14/20 18:00 Last Admin: 02/14/20 17:05 Dose: 999 mls/hr Documented by: KENROY Sodium Chloride (Saline Flush) 10 ml FLUSH ASDIRECTED PRN PRN Reason: Keep Vein Open Labs: Laboratory Tests 02/14/20 02/14/20 02/14/20 Range/Units 16:25 16:25 16:25 WBC 7.3 (4.0-10.0) x10^3/uL RBC 3.50 L (4.00-5.50) x10^6/uL Hgb 11.5 L (12.0-16.0) g/dL Hct 33.7 (33.0-47.0) % MCV 96.3 H (78.0-93.0) fL MCH 32.9 H (26.0-32.0) pg MCHC 34.1 (32.0-36.0) g/dL RDW Coeff of Dione 12.5 (10.0-15.0) % Plt Count 256 (130-400) x10^3/uL Neut % (Auto) 77.3 (50.0-80.0) % Lymph % (Auto) 13.8 L (25.0-50.0) % [place] % (Auto) 6.1 (2.0-11.0) % Eos % (Auto) 2.3 (0.0-4.0) % Baso % (Auto) 0.5 (0.2-1.2) % PT 10.2 (9.5-12.3) SEC INR 0.9 L (2.0-3.5) APTT 24.6 L (25.6-32.8) SEC Sodium 139 (136-145) mmol/L Potassium 4.3 (3.5-5.1) mmol/L Chloride 104 (98-107) mmol/L Carbon Dioxide 22 (21-32) mmol/L Anion Gap 17.3 (10-20) mmol/L BUN 30 H (7-18) mg/dL Creatinine 1.8 H (0.55-1.02) mg/dL Est Cr Clr Drug Dosing TNP Estimated GFR (MDRD) 27 Glucose 158 H (74-106) mg/dL Calcium 8.9 (8.5-10.1) mg/dL Corrected Calcium 8.98 (8.5-10.1) mg/dL Magnesium 2.2 (1.8-2.4) mg/dL Total Bilirubin 0.4 (0.2-1.0) mg/dL AST 22 (15-37) U/L ALT 31 (14-59) U/L Alkaline Phosphatase 59 (46-116) U/L Troponin I 0.017 (<=0.056) ng/mL Total Protein 7.2 (6.4-8.2) g/dL Albumin 3.9 (3.4-5.0) g/dL Globulin 3.3 Albumin/Globulin Ratio 1.18 Meds: Medications Generic Name Dose Route Start Last Admin Trade Name Freq PRN Reason Stop Dose Admin Sodium Chloride 1,000 mls @ 999 mls/hr 02/14/20 17:00 02/14/20 17:05 Normal Saline IV 02/14/20 18:00 999 mls/hr ONETIME ONE Administration Sodium Chloride 10 ml 02/14/20 16:10 Saline Flush FLUSH ASDIRECTED PRN Keep Vein Open Departure - Departure Time of Disposition: 17:08 Disposition: Home, Self-Care 01 Condition: Good Clinical Impression: Mild dehydration, Abrasion, Dementia Fall Qualifiers: Encounter type: initial encounter Qualified Code(s): W19.XXXA - Unspecified fall, initial encounter Heat exposure Qualifiers: Encounter type: initial encounter Qualified Code(s): T67.9XXA - Effect of heat and light, unspecified, initial encounter - Discharge Information *PRESCRIPTION DRUG MONITORING PROGRAM REVIEWED*: Not Applicable *COPY OF PRESCRIPTION DRUG MONITORING REPORT IN PATIENT JESS: Not Applicable Instructions: Dementia Caregiver Guide, Dementia, [id number], Dehydration, Elderly, [id number] Referrals: Susan Ford MD [Primary Care Provider] - Forms: ED Department Discharge Additional Instructions: -Stay well hydrated out of the heat -Keep abrasion to right forearm clean with soap and water and apply antibiotic ointment and bandaid as needed -Consider 27/02 nursing care in a locked unit where patient cannot get outside without assistance -Follow up with your PCP as needed for recheck or return to the ER with any concerns Sepsis Event Note (ED) - Focused Exam Vital Signs: Vital Signs Temp Pulse Resp BP Pulse Ox 02/14/20 16:22 37.4 C 90 16 161/79 H 97 - My Orders Last 24 Hours: My Active Orders 02/14/20 16:10 EKG Documentation Completion [RC] STAT UA W/RUDY RFLX IF INDICATED [URIN] Stat Sodium Chloride 0.9% [Saline Flush] 10 ml FLUSH ASDIRECTED PRN Saline Lock Insert [OM.PC] Stat 02/14/20 17:00 Sodium Chloride 0.9% [Normal Saline] 1,000 ml IV ONETIME - Assessment/Plan Last 24 Hours: My Active Orders 02/14/20 16:10 EKG Documentation Completion [RC] STAT UA W/RUDY RFLX IF INDICATED [URIN] Stat Sodium Chloride 0.9% [Saline Flush] 10 ml FLUSH ASDIRECTED PRN Saline Lock Insert [OM.PC] Stat 02/14/20 17:00 Sodium Chloride 0.9% [Normal Saline] 1,000 ml IV ONETIME
[2020-02-14 16:43] VITALS: BP 161/79; PULSE 90
[2020-02-14 16:55] LABS: PTT,PARTIAL THROMBOPLSTIN TIME 24.6 SEC (25.6-32.8)
[2020-02-14 16:56] LABS: ANION GAP 17.3 mmol/L (10-20); CHLORIDE,CL 104 mmol/L (98-107); SODIUM,NA 139 mmol/L (136-145)
[2020-02-14] MEDS: Sodium Chloride 0.9% 1,000 ML IV ONE (17:05)
== END 2020-02-14 17:55 | disposition home or self-care (01) ==
LOC: VM.ED 16:07
DX: T67.9XXA Effect of heat and light, unspecified, initial encounter (principal); S50.811A Abrasion of right forearm, initial encounter; S80.212A Abrasion, left knee, initial encounter; S80.211A Abrasion, right knee, initial encounter; E86.0 Dehydration; G30.9 Alzheimer's disease, unspecified; F02.80 Dementia in other diseases classified elsewhere, unspecified severity, without behavioral disturbance, psychotic disturbance, mood disturbance, and anxiety; I48.91 Unspecified atrial fibrillation; M06.9 Rheumatoid arthritis, unspecified; E11.9 Type 2 diabetes mellitus without complications; E03.9 Hypothyroidism, unspecified; Z88.8 Allergy status to other drugs, medicaments and biological substances; Z91.018 Allergy to other foods; Z79.82 Long term (current) use of aspirin; Z79.899 Other long term (current) drug therapy; W01.0XXA Fall on same level from slipping, tripping and stumbling without subsequent striking against object, initial encounter
CPT/HCPCS: 36415; 80053; 83735; 84484; 85025; 85610; 85730; 93005; 96360; 99284-25; J7030

== ENCOUNTER 2021-12-20 15:44 | Emergency (ER) | payer MEDICARE, OTHER ==
[2021-12-20 18:33] LABS: CHLORIDE,CL 97 mmol/L (98-107); SODIUM,NA 136 mmol/L (136-145)
[2021-12-20 18:39] LABS: ANION GAP 16.4 mmol/L (5-15)
[2021-12-20] MEDS: Morphine 2 MG/ML SYRINGE IVPUSH ONE (19:26)
[2021-12-20] MEDS: Ondansetron 4 MG/2 ML SDV IVPUSH ONE (19:27)
[2021-12-20 20:03] VITALS: BP 131/51; PULSE 55
== END 2021-12-20 19:50 | disposition short-term general hospital (02) ==
LOC: VM.ED 15:44
DX: S72.092A Other fracture of head and neck of left femur, initial encounter for closed fracture (principal); R00.2 Palpitations; E78.00 Pure hypercholesterolemia, unspecified; I48.91 Unspecified atrial fibrillation; E11.9 Type 2 diabetes mellitus without complications; E03.9 Hypothyroidism, unspecified; Z88.5 Allergy status to narcotic agent; Z91.018 Allergy to other foods; Z79.899 Other long term (current) drug therapy; W18.30XA Fall on same level, unspecified, initial encounter; Y92.129 Unspecified place in nursing home as the place of occurrence of the external cause
CPT/HCPCS: 36415; 70450; 73502; 80048; 85025; 85610; 94760; 96374; 96375; 99284; 99285; J2270; J2405